=== PATIENT | female | born 1995 | race Hispanic/Latino ===

== ENCOUNTER 2017-11-02 13:05 | Emergency (ER) | payer SELFPAY ==
[2017-11-02] MEDS ORDERED: DIPHENHYDRAMINE 50 MG/ML VIAL ONE (13:55)
[2017-11-02] MEDS ORDERED: METHYLPREDNISOLONE 125 MG INJ ONE (13:56)
[2017-11-02] MEDS ORDERED: NA CHLORIDE 0.9% 1,000 ML ONE (13:56)
[2017-11-02] MEDS ORDERED: FAMOTIDINE 20 MG/2 ML VIAL IV ONE (13:56)
--- NOTE | 2017-11-02 14:41 | EDPHYS ---
Physician Documentation [facility] Name: Shobha Rodriguez Age: 22 yrs Sex: Female : 1995 Arrival Date: 11/02/2017 Time: 13:08 Bed 6 Private MD: Yo Merino ED Physician Barrington Ordaz HPI: 11/02 18:54 This 22 yrs old Female presents to ER via Ambulatory with complaints of Hives. kdr 18:54 The patient presents with itching, rash, of the back, chest, abdomen, right arm and kdr left arm, that is diffuse. Onset: The symptoms/episode began/occurred suddenly, just prior to arrival, today. Associated signs and symptoms: Pertinent positives: hives, rash, Pertinent negatives: Altered mental status chest pain, dysphagia, fever, headache, Light headed nausea, swelling, Syncope vomiting. Possible causes: The patient has no known obvious cause for the symptoms. At home the patient or guardian has treated the symptoms with nothing. Severity of symptoms: At their worst the symptoms were moderate in the emergency department the symptoms are worse markedly. The patient has not experienced similar symptoms in the past. The patient has not recently seen a physician. 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 - Social history:: Smoking status: Patient/guardian denies using tobacco. - Ebola Screening: : No symptoms or risks identified at this time. ROS: 18:54 Constitutional: Negative for fever, chills, and weight loss, Eyes: Negative for injury, kdr pain, redness, and discharge, Neck: Negative for injury, pain, and swelling, Cardiovascular: Negative for chest pain, palpitations, and edema, Respiratory: Negative for shortness of breath, cough, wheezing, and pleuritic chest pain, Abdomen/GI: Negative for abdominal pain, nausea, vomiting, diarrhea, and constipation, Back: Negative for injury and pain, : Negative for injury, bleeding, discharge, and swelling, MS/Extremity: Negative for injury and deformity, Neuro: Negative for headache, weakness, numbness, tingling, and seizure activity. Psych: Negative for depression, anxiety, suicide ideation, homicidal ideation, and hallucinations, Allergy/Immunology: Negative for hives, rash, and allergies, Endocrine: Negative for neck swelling, polydipsia, polyuria, polyphagia, and marked weight changes, Hematologic/Lymphatic: Negative for swollen nodes, abnormal bleeding, and unusual bruising. 18:54 Skin: Positive for rash, diffusely. Exam: 18:54 Constitutional: This is a well developed, well nourished patient who is awake, alert, kdr and in no acute distress. Head/Face: Normocephalic, atraumatic. Eyes: Pupils equal round and reactive to light, extra-ocular motions intact. Lids and lashes normal. Conjunctiva and sclera are non-icteric and not injected. Cornea within normal limits. Periorbital areas with no swelling, redness, or edema. ENT: Nares patent. No nasal discharge, no septal abnormalities noted. Tympanic membranes are normal and external auditory canals are clear. Oropharynx with no redness, swelling, or masses, exudates, or evidence of obstruction, uvula midline. Mucous membranes moist. Neck: Trachea midline, no thyromegaly or masses palpated, and no cervical lymphadenopathy. Supple, full range of motion without nuchal rigidity, or vertebral point tenderness. No Meningismus. Chest/axilla: Normal chest wall appearance and motion. Nontender with no deformity. No lesions are appreciated. Cardiovascular: Regular rate and rhythm with a normal S1 and S2. No gallops, murmurs, or rubs. Normal PMI, no JVD. No pulse deficits. Respiratory: Lungs have equal breath sounds bilaterally, clear to auscultation and percussion. No rales, rhonchi or wheezes noted. No increased work of breathing, no retractions or nasal flaring. Abdomen/GI: Soft, non-tender, with normal bowel sounds. No distension or tympany. No guarding or rebound. No evidence of tenderness throughout. Back: No spinal tenderness. No costovertebral tenderness. Full range of motion. MS/ Extremity: Pulses equal, no cyanosis. Neurovascular intact. Full, normal range of motion. Neuro: Awake and alert, GCS 15, oriented to person, place, time, and situation. Cranial nerves II-XII grossly intact. Motor strength 5/5 in all extremities. Sensory grossly intact. Cerebellar exam normal. Normal gait. Psych: Awake, alert, with orientation to person, place and time. Behavior, mood, and affect are within normal limits. Vital Signs: 13:14 BP 117 / 90; Pulse 108; Resp 15; Temp 99.1(TE); Pulse Ox 99% on R/A; Weight 63.5 kg lk1 (R); Height 4 ft. 11 in. (149.86 cm) (R); Pain 9/10; 15:01 BP 125 / 89; Pulse 89; Resp 16; Pulse Ox 99% ; Pain 1/10; jl7 13:14 Body Mass Index 28.28 (63.50 kg, 149.86 cm) lk1 MDM: 13:25 Patient medically screened. kdr 18:54 Data reviewed: vital signs, nurses notes. Counseling: I had a detailed discussion with kdr the patient and/or guardian regarding: the historical points, exam findings, and any diagnostic results supporting the discharge/admit diagnosis, the need for outpatient follow up. Administered Medications: 13:57 Drug: NS 0.9% 1000 ml Route: IV; Rate: 1 bolus; Site: right antecubital; jl7 14:44 Follow up: Response: No adverse reaction; IV Status: Completed infusion jl7 13:58 Drug: SOLU-Medrol 125 mg Route: IVP; Site: right antecubital; jl7 14:30 Follow up: Response: No adverse reaction; Marked relief of symptoms jl7 14:00 Drug: Benadryl 25 mg Route: IVP; Site: right antecubital; jl7 14:30 Follow up: Response: No adverse reaction; Marked relief of symptoms jl7 14:03 Drug: Pepcid 20 mg Route: IVP; Site: right antecubital; jl7 14:30 Follow up: Response: No adverse reaction; Marked relief of symptoms jl7 Disposition: 11/02/17 14:40 Discharged to Home. Impression: Acute Allergic Reaction: Agent unkown. - Condition is Stable. - Discharge Instructions: Hives, [id number], Allergies, [id number]. - Prescriptions for Benadryl 25 mg Oral Capsule - take 1 capsule by ORAL route every 6 hours As needed; 30 tablet. Pepcid 20 mg Oral Tablet - take 1 tablet by ORAL route every 12 hours for 5 days; 10 tablet. Medrol (Mike) 4 mg Oral Tablets, Dose Pack - take 1 tablet by ORAL route as directed - follow package instructions; 1 packet. - Medication Reconciliation Form, Thank You Letter form. - Follow up: Yo Merino MD; When: 2 - 3 days; Reason: If symptoms return, Further diagnostic work-up, Recheck today's complaints, Continuance of care, Re-evaluation by your physician. - Problem is new. - Symptoms have improved. Signatures: Barrington Ordaz MD MD kdr Kluge, Leah RN RN lk1 Marlon Rosado RN RN jl7 Corrections: (The following items were deleted from the chart) 15:04 14:40 11/02/2017 14:40 Discharged to Home. Impression: Acute Allergic Reaction: Agent jl7 unkown. Condition is Stable. Forms are Medication Reconciliation Form, Thank You Letter, Antibiotic Education, Prescription Opioid Use. Follow up: Yo Merino; When: 2 - 3 days; Reason: If symptoms return, Further diagnostic work-up, Recheck today's complaints, Continuance of care, Re-evaluation by your physician. Problem is new. Symptoms have improved. kdr
--- NOTE | 2017-11-02 14:41 | ER ---
Nurse's Notes [facility] Name: Shobha Rodriguez Age: 22 yrs Sex: Female : 1995 Arrival Date: 11/02/2017 Time: 13:08 Bed 6 Private MD: Yo Merino Diagnosis: Acute Allergic Reaction: Agent unkown Presentation: 11/02 13:11 Presenting complaint: Patient states: "I got some speckles on my hands around 0730 this lk1 morning. I have psoriasis and I am used to itching but its looking worse today. My back is whelped up and it huber really bad.". Transition of care: patient was not received from another setting of care. Onset: The symptoms/episode began/occurred gradually. Anaphylaxis evaluation, no signs or symptoms of anaphylaxis were noted. Onset of symptoms was November 02, 2017 at 07:30. Risk Assessment: Do you want to hurt yourself or someone else? Patient reports no desire to harm self or others. Initial Sepsis Screen: Does the patient meet any 2 criteria? No. Patient's initial sepsis screen is negative. Does the patient have a suspected source of infection? No. Patient's initial sepsis screen is negative. Care prior to arrival: None. 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 - Social history:: Smoking status: Patient/guardian denies using tobacco. - Ebola Screening: : No symptoms or risks identified at this time. Screenin:45 Abuse screen: Denies threats or abuse. Denies injuries from another. Nutritional jl7 screening: No deficits noted. Tuberculosis screening: No symptoms or risk factors identified. Fall Risk IV access (20 points). Total Tellez Fall Scale indicates No Risk (0-24 pts). Assessment: 13:45 General: Appears in no apparent distress. uncomfortable, Behavior is calm, cooperative, jl7 appropriate for age. Pain: Complains of pain in all over Pain does not radiate. Pain currently is 9 out of 10 on a pain scale. Quality of pain is described as burning, Pain began 4 hours ago. Neuro: Level of Consciousness is awake, alert, obeys commands, Oriented to person, place, time, situation. Cardiovascular: Patient's skin is warm and dry. Respiratory: Airway is patent Respiratory effort is even, unlabored, Respiratory pattern is regular, symmetrical, Breath sounds are clear bilaterally. Derm: Skin is pink, warm \\T\\ dry. Rash noted that is itchy, red, raised, urticaria, on face, arms, torso. 14:30 Reassessment: Patient and/or family updated on plan of care and expected duration. Pain jl7 level reassessed. Patient is alert, oriented x 3, equal unlabored respirations, skin warm/dry/pink. Patient denies pain at this time. Patient states symptoms have improved. Vital Signs: 13:14 BP 117 / 90; Pulse 108; Resp 15; Temp 99.1(TE); Pulse Ox 99% on R/A; Weight 63.5 kg lk1 (R); Height 4 ft. 11 in. (149.86 cm) (R); Pain 9/10; 15:01 BP 125 / 89; Pulse 89; Resp 16; Pulse Ox 99% ; Pain 1/10; jl7 13:14 Body Mass Index 28.28 (63.50 kg, 149.86 cm) lk1 ED Course: 13:08 Patient arrived in ED. mr 13:08 Yo Merino MD is Private Physician. mr 13:12 Triage completed. lk1 13:16 Arm band placed on right wrist. lk1 13:17 Marlon Rosado RN is Primary Nurse. jl7 13:25 Barrington Ordaz MD is Attending Physician. kdr 13:45 Patient has correct armband on for positive identification. Bed in low position. Call jl7 light in reach. Side rails up X 1. Pulse ox on. NIBP on. Warm blanket given. 13:45 Inserted saline lock: 20 gauge in right antecubital area, using aseptic technique. jl7 14:39 Yo Merino MD is Referral Physician. kdr 15:01 No provider procedures requiring assistance completed. IV discontinued, intact, jl7 bleeding controlled, No redness/swelling at site. Pressure dressing applied. Administered Medications: 13:57 Drug: NS 0.9% 1000 ml Route: IV; Rate: 1 bolus; Site: right antecubital; jl7 14:44 Follow up: Response: No adverse reaction; IV Status: Completed infusion jl7 13:58 Drug: SOLU-Medrol 125 mg Route: IVP; Site: right antecubital; jl7 14:30 Follow up: Response: No adverse reaction; Marked relief of symptoms jl7 14:00 Drug: Benadryl 25 mg Route: IVP; Site: right antecubital; jl7 14:30 Follow up: Response: No adverse reaction; Marked relief of symptoms jl7 14:03 Drug: Pepcid 20 mg Route: IVP; Site: right antecubital; jl7 14:30 Follow up: Response: No adverse reaction; Marked relief of symptoms [facility] Outcome: 14:40 Discharge ordered by . ozzie 15:01 Discharged to home ambulatory. jl7 15:01 Condition: stable 15:01 Discharge instructions given to patient, Instructed on discharge instructions, follow up and referral plans. medication usage, Demonstrated understanding of instructions, follow-up care, medications, Prescriptions given X 3. 15:04 Patient left the ED. jl7 Signatures: Barrington Ordaz MD MD kdr Rivera, Maria mr Kluge, Leah RN RN lk1 Marlon Rosado RN RN jl7
[2017-11-02 15:10] VITALS: TEMP 99.1; O2SAT 99
[2017-11-02 15:11] VITALS: BP 125/89
== END 2017-11-02 15:04 | disposition home or self-care (01) ==
LOC: ER 13:05
DX: T78.40XA Allergy, unspecified, initial encounter (principal); X58.XXXA Exposure to other specified factors, initial encounter; L50.9 Urticaria, unspecified; Z88.0 Allergy status to penicillin; G43.909 Migraine, unspecified, not intractable, without status migrainosus; L40.9 Psoriasis, unspecified
CPT/HCPCS: 96361; 96374; 96375; 99284; J2930; J7030

== ENCOUNTER 2018-06-02 16:08 | Emergency (ER) | payer OTHER, SELFPAY ==
--- NOTE | 2018-06-02 17:23 | EDPHYS ---
Physician Documentation [facility] Name: Shobha Rodriguez Age: 23 yrs Sex: Female : 1995 Arrival Date: 06/02/2018 Time: 16:09 Bed 17 Private MD: ED Physician Wade Damon HPI: 06/02 17:02 This 23 yrs old Female presents to ER via Ambulatory with complaints of Back jmm Pain. 17:02 The patient presents with pain that is acute. Onset: The symptoms/episode jmm began/occurred gradually, 5 day(s) ago. The pain does not radiate. Associated signs and symptoms: Pertinent positives: vomiting. This is a 23 year old female currently 7 week that presents to the ED with upper back pain beginning this past Monday. Patient states the same day she vomited and was nausea. She currently denies nausea, vomiting, abdominal pain. Patient states upper back pain continues. . 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 - Social history:: Smoking status: Patient/guardian denies using tobacco. - Ebola Screening: : Patient negative for fever greater than or equal to 101.5 degrees Fahrenheit, and additional compatible Ebola Virus Disease symptoms Patient denies exposure to infectious person Patient denies travel to an Ebola-affected area in the 21 days before illness onset No symptoms or risks identified at this time. ROS: 17:02 Constitutional: Negative for fever, chills, and weight loss, Cardiovascular: Negative jmm for chest pain, palpitations, and edema, Respiratory: Negative for shortness of breath, cough, wheezing, and pleuritic chest pain. 17:02 Abdomen/GI: Positive for nausea, vomiting. 17:02 Back: Positive for pain at rest, pain with movement. 17:02 All other systems are negative. Exam: 17:02 Constitutional: This is a well developed, well nourished patient who is awake, alert, jmm and in no acute distress. Head/Face: atraumatic. Eyes: EOMI, no conjunctival erythema appreciated Neck: Trachea midline, Supple Chest/axilla: Normal chest wall appearance and motion. Cardiovascular: Regular rate and rhythm. No edema appreciated Respiratory: Normal respirations, no respiratory distress appreciated 17:02 Abdomen/GI: Inspection: abdomen appears normal, Bowel sounds: normal, Palpation: abdomen is soft and non-tender, in all quadrants. 17:02 Back: pain, that is mild, of the left scapular area and right scapular area, pain is elicited on palpation of the trapezius muscle. 17:02 Back: CVA tenderness, is absent, is noted bilaterally. 17:02 Musculoskeletal/extremity: ROM: intact in all extremities. 17:02 Neuro: Orientation: is normal, Mentation: is normal, Memory: is normal, Gait: is steady. 17:02 Psych: Behavior/mood is pleasant, cooperative. Vital Signs: 16:20 BP 108 / 70; Pulse 77; Resp 17; Temp 98.4; Pulse Ox 98% on R/A; Weight 68.95 kg; Height sg 4 ft. 11 in. (149.86 cm); Pain 7/10; 17:18 BP 101 / 71; Pulse 74; Resp 18; Temp 98.4(O); Pulse Ox 98% on R/A; Weight 68.95 kg; em Height 4 ft. 11 in. (149.86 cm); Pain 7/10; 17:18 Body Mass Index 30.70 (68.95 kg, 149.86 cm) em MDM: 16:52 Patient medically screened. [facility] 17:11 Differential diagnosis: muscle strain, cholecystitis, pyelonephritis. Data reviewed: [facility] vital signs, nurses notes. Counseling: I had a detailed discussion with the patient and/or guardian regarding: the historical points, exam findings, and any diagnostic results supporting the discharge/admit diagnosis, lab results, the need for outpatient follow up. 17:21 ED course: Patient is alert and non toxic in appearance in the ED. Symptoms appear most jmm likely musculoskeletal. PE findings are not consistent with pyelonephritis or cholecystitis. NO vaginal bleeding or pelvic pain. Patient is given return precautions. Patient understood and agrees with the plan of care. . 06/02 17: Order name: Urine Microscopic Only; Complete Time: 17:43 em 06/02 17:09 Order name: Urine Culture em 06/02 17:01 Order name: Urine Dipstick-Ancillary (obtain specimen); Complete Time: 17:08 em 06/02 17:11 Order name: Urine Dipstick--Ancillary (enter results) eb 06/02 17:11 Order name: Urine --Ancillary (enter results) eb Administered Medications: No medications were administered Disposition: 06/03 07:03 Co-signature as Attending Physician, Wade Damon MD. rn Disposition: 06/02/18 17:23 Discharged to Home. Impression: Urinary tract infection, site not specified, Trapezius Strain. - Condition is Stable. - Discharge Instructions: Muscle Strain, and Urinary Tract Infection. - Prescriptions for Cyclobenzaprine 5 mg Oral Tablet - take 1 tablet by ORAL route 3 times per day As needed; 15 tablet. Cephalexin 500 mg Oral Capsule - take 1 capsule by ORAL route every 12 hours for 10 days; 20 capsule. - Medication Reconciliation Form, Thank You Letter, Antibiotic Education, Prescription Opioid Use form. - Follow up: Private Physician; When: 2 - 3 days; Reason: Recheck today's complaints, Continuance of care, Re-evaluation by your physician. Signatures: Dispatcher [employer] Car Hamm, RN RN sg Antony Grande PA PA Olivier Peres, EVENT MGR EVENT MGR em Wade Damon MD MD business development intern: (The following items were deleted from the chart) 06/02 17:49 17:23 06/02/2018 17:23 Discharged to Home. Impression: Urinary tract infection, site em not specified; Trapezius Strain. Condition is Stable. Forms are Medication Reconciliation Form, Thank You Letter, Antibiotic Education, Prescription Opioid Use. Follow up: Private Physician; When: 2 - 3 days; Reason: Recheck today's complaints, Continuance of care, Re-evaluation by your physician. [facility]
--- NOTE | 2018-06-02 17:23 | ER ---
Nurse's Notes [facility] Name: Shobha Rodriguez Age: 23 yrs Sex: Female : 1995 Arrival Date: 06/02/2018 Time: 16:09 Bed 17 Private MD: Diagnosis: Urinary tract infection, site not specified;Trapezius Strain Presentation: 06/02 16:23 Presenting complaint: Patient states: Flank pain, lower back pain, Nausea for two days, sg urinary urgency and frequency. Transition of care: patient was not received from another setting of care. Onset of symptoms was June 02, 2018. Risk Assessment: Do you want to hurt yourself or someone else? Patient reports no desire to harm self or others. Initial Sepsis Screen: Does the patient meet any 2 criteria? No. Patient's initial sepsis screen is negative. Does the patient have a suspected source of infection? Yes: Dysuria/Frequency/Urgency/UTI. Care prior to arrival: None. 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 - Social history:: Smoking status: Patient/guardian denies using tobacco. - Ebola Screening: : Patient negative for fever greater than or equal to 101.5 degrees Fahrenheit, and additional compatible Ebola Virus Disease symptoms Patient denies exposure to infectious person Patient denies travel to an Ebola-affected area in the 21 days before illness onset No symptoms or risks identified at this time. Screenin:47 Abuse screen: Denies threats or abuse. Nutritional screening: No deficits noted. em Tuberculosis screening: No symptoms or risk factors identified. 16:47 Fall Risk None identified. em Assessment: 16:47 General: Appears in no apparent distress. comfortable, Behavior is calm, cooperative. em Pain: Complains of pain in right scapular area and left scapular area Pain currently is 7 out of 10 on a pain scale. Pain began 2-3 days ago. Neuro: Level of Consciousness is awake, alert, obeys commands, Oriented to person, place, time, situation. Cardiovascular: Capillary refill < 3 seconds Patient's skin is warm and dry. Respiratory: Airway is patent Respiratory effort is even, unlabored, Respiratory pattern is regular, symmetrical. GI: Abdomen is flat, Patient currently denies nausea, vomiting. : Urine is cloudy, Denies burning with urination, discharge, urinary frequency, vaginal bleeding. : Denies. Derm: Skin is intact, is healthy with good turgor, Skin is pink, warm \T\ dry. Musculoskeletal: Capillary refill < 3 seconds, Range of motion: intact in all extremities. 17:00 Reassessment: I agree with previous assessment. 17:47 Reassessment: Patient appears in no apparent distress at this time. Patient and/or em family updated on plan of care and expected duration. Pain level reassessed. Patient is alert, oriented x 3, equal unlabored respirations, skin warm/dry/pink. Vital Signs: 16:20 BP 108 / 70; Pulse 77; Resp 17; Temp 98.4; Pulse Ox 98% on R/A; Weight 68.95 kg; Height sg 4 ft. 11 in. (149.86 cm); Pain 7/10; 17:18 BP 101 / 71; Pulse 74; Resp 18; Temp 98.4(O); Pulse Ox 98% on R/A; Weight 68.95 kg; em Height 4 ft. 11 in. (149.86 cm); Pain 7/10; 17:18 Body Mass Index 30.70 (68.95 kg, 149.86 cm) em ED Course: 16:09 Patient arrived in ED. as 16:23 Arm band placed on. sg 16:25 Triage completed. 16:29 Antony Grande PA is PHCP. [facility] 16:29 Wade Damon MD is Attending Physician. [facility] 16:34 Olivier Bianchi LVN is Primary Nurse. em 16:47 Patient has correct armband on for positive identification. Bed in low position. Call em light in reach. Pulse ox on. NIBP on. 17:11 Urine collected: clean catch specimen, cloudy. em 17:47 No provider procedures requiring assistance completed. Patient did not have IV access em during this emergency room visit. Administered Medications: No medications were administered Outcome: 17:23 Discharge ordered by . [facility] 17:47 Discharged to home ambulatory. em 17:47 Condition: good 17:47 Discharge instructions given to patient, Instructed on discharge instructions, follow up and referral plans. medication usage, Demonstrated understanding of instructions, follow-up care, medications, Prescriptions given X 2. 17:49 Patient left the ED. em Signatures: Car Hermosillo, RN RN Antony Duke PA PA jmm Munoz, Edgar, CLAY STAIN MIXER CLAY STAIN MIXER em Stephanie Hill Heather, RN RN hb
[2018-06-02 17:41] LABS: Urine Amorphous Sediment 1+ /HPF (NONE SEEN); Urine Bacteria 20-50 /HPF (<20); Urine Culture Reflex Order NOT NEEDED; Urine Mucus 1+ /HPF (NONE SEEN); Urine RBC <5 /HPF (NONE SEEN)
[2018-06-02 17:54] VITALS: TEMP 98.4; O2SAT 98
[2018-06-02 17:57] VITALS: BP 101/71
[2018-06-02 18:07] LABS: Urine Blood NEGATIVE (NEG); Urine Glucose NEGATIVE (NEG); Urine Protein NEGATIVE (NEG)
== END 2018-06-02 17:49 | disposition home or self-care (01) ==
LOC: ER 16:08
DX: O23.41 Unspecified infection of urinary tract in pregnancy, first trimester (principal); S29.012A Strain of muscle and tendon of back wall of thorax, initial encounter; Z3A.01 Less than 8 weeks gestation of pregnancy; Z88.0 Allergy status to penicillin
CPT/HCPCS: 81003; 81015; 81025; 87086; 87088; 99283

== ENCOUNTER 2018-06-09 10:33 | Emergency (ER) | payer OTHER ==
[2018-06-09 11:31] LABS: Absolute Lymphocytes (CBC) 2.2 K/uL (0.7-4.9); Absolute Monocytes 0.6 K/uL (0.1-1.3); Absolute Neutrophil 4.6 K/uL (1.8-8.0); Basophils % 0.2 % (0-1.3); Eosinophils % 1.6 % (0-4.4); Hematocrit 40.9 % (36.0-45.0); Lymphocytes % 29.5 % (15.3-44.8); Monocytes % 8.1 % (3.3-12.3); RBC Red Blood Cell Count 4.54 M/uL (3.86-4.86)
[2018-06-09 11:40] LABS: BUN Blood Urea Nitrogen 6 mg/dL (7-18); Bicarbonate 24 mmol/L (21-32); Glucose Level 80 mg/dL (74-106); Potassium 3.6 mmol/L (3.5-5.1); Sodium Level 139 mmol/L (136-145); Troponin (Emerg Dept Use Only) < 0.02 ng/mL (0.0-0.045)
--- NOTE | 2018-06-09 12:42 | RAD REPORT ---
EXAM DESCRIPTION: RAD - Chest Single View - 06/09/2018 11:36 am CLINICAL HISTORY: Chest pain COMPARISON: None. TECHNIQUE: AP portable chest image was obtained 1100 hours . FINDINGS: Lungs are clear. Heart and vasculature are normal. No measurable pleural effusion and no p neumothorax. No acute bony abnormality seen. No acute aortic findings suspected. IMPRESSION: No acute cardiopulmonary process.
--- NOTE | 2018-06-09 14:19 | ER ---
Nurse's Notes [facility] Unit Name: Shobha Rodriguez Age: 23 yrs Sex: Female : 1995 Arrival Date: 06/09/2018 Time: 10:36 Bed 6 Private MD: Diagnosis: Chest pain, unspecified Presentation: 06/09 10:44 Presenting complaint: Patient states: I have had chest pain when I sneeze, take a deep la1 breath or cough for the last week or so. Pt reports sharp stabbing pain that radiates to back when she moves but no pain at rest. Pt is also about 8 wks . Transition of care: patient was not received from another setting of care. Onset of symptoms was June 09, 2018. Risk Assessment: Do you want to hurt yourself or someone else? Patient reports no desire to harm self or others. Initial Sepsis Screen: Does the patient meet any 2 criteria? No. Patient's initial sepsis screen is negative. Does the patient have a suspected source of infection? No. Patient's initial sepsis screen is negative. Care prior to arrival: None. 10:44 Method Of Arrival: Ambulatory la1 10:44 Acuity: THAIS 3 la1 DIRECTOR OF ROOMS: 10:46 LMP 04/12/2018 la1 Historical: - Allergies: 10:46 PENICILLINS; la1 - PMHx: 10:46 Migraines; psoriasis; la1 - Immunization history:: Adult Immunizations up to date. - Social history:: Smoking status: Patient/guardian denies using tobacco. - Ebola Screening: : No symptoms or risks identified at this time. Screenin:00 Abuse screen: Denies threats or abuse. Denies injuries from another. ca1 11:00 Nutritional screening: No deficits noted. On. Tuberculosis screening: No symptoms or ca1 risk factors identified. Fall Risk None identified. Assessment: 10:50 General: Appears in no apparent distress. comfortable, Behavior is calm, cooperative, ca1 appropriate for age. Pain: Complains of pain in chest Pain radiates to back Pain began 2 hours ago. Neuro: Level of Consciousness is awake, alert, obeys commands, Oriented to person, place, time, situation. Cardiovascular: Heart tones S1 S2 Capillary refill < 3 seconds Rhythm is sinus rhythm. Respiratory: Airway is patent Respiratory effort is even, unlabored, Respiratory pattern is regular, symmetrical, Breath sounds are clear bilaterally. GI: Abdomen is flat, non-distended, Bowel sounds present X 4 quads. Abd is soft and non tender X 4 quads. : No signs and/or symptoms were reported regarding the genitourinary system. EENT: No signs and/or symptoms were reported regarding the EENT system. Derm: Skin is intact, is healthy with good turgor, Skin is pink, warm \T\ dry. Musculoskeletal: Circulation, motion, and sensation intact. 11:48 Reassessment: Patient appears in no apparent distress at this time. Patient and/or ca1 family updated on plan of care and expected duration. Pain level reassessed. Patient is alert, oriented x 3, equal unlabored respirations, skin warm/dry/pink. 12:50 Reassessment: Shanice SantoyoBROKERAGE CLERK at bedside. ca1 13:46 Reassessment: Patient appears in no apparent distress at this time. Patient and/or ca1 family updated on plan of care and expected duration. Pain level reassessed. Patient is alert, oriented x 3, equal unlabored respirations, skin warm/dry/pink. 14:15 Reassessment: Patient appears in no apparent distress at this time. Provider at bedside.ca1 Vital Signs: 10:46 BP 105 / 75; Pulse 91; Resp 18; Temp 98.2; Pulse Ox 98% on R/A; Weight 70.31 kg; Height la1 4 ft. 11 in. (149.86 cm); 11:48 BP 99 / 72; Pulse 84; Resp 19; Pulse Ox 100% on R/A; ca1 12:45 BP 99 / 72; Pulse 82; Resp 19; Pulse Ox 100% on R/A; ca1 13:42 BP 102 / 71; Pulse 92; Resp 19; Pulse Ox 100% on R/A; ca1 14:20 BP 94 / 59; Pulse 85; Resp 18; Pulse Ox 100% on R/A; ca1 10:46 Body Mass Index 31.31 (70.31 kg, 149.86 cm) la1 ED Course: 10:36 Patient arrived in ED. mr 10:36 [facility]C [facility] kb 10:37 Carlos Gamble MD is Attending Physician. kb 10:46 Triage completed. la1 10:47 Arm band placed on right wrist. la1 10:48 Marlon Rosado, RN is Primary Nurse. jl7 10:50 Patient has correct armband on for positive identification. Placed in gown. Bed in low ca1 position. Call light in reach. Side rails up X2. lap welder on. Pulse ox on. NIBP on. 11:02 Guillermina Cook, RN is Primary Nurse. ca1 11:09 Initial lab(s) drawn, by mn, sent to lab. EKG done, by ED staff, reviewed by Shanice RIDER. Inserted saline lock: 22 gauge in right antecubital area, using aseptic technique. Blood collected. Patient maintains SpO2 saturation greater than 95% on room air. 11:44 XRAY Chest (1 view) In Process Unspecified. EDMS 12:17 Initial lab(s) drawn, D-dimer. jb1 13:47 Ultrasound completed. Patient tolerated well. sg3 13:48 US Extremity Venous W Compression Joshua In Process Unspecified. EDMS 14:11 Guillermina Cook, RN is Primary Nurse. ca1 14:29 No provider procedures requiring assistance completed. IV discontinued, intact, ca1 bleeding controlled, No redness/swelling at site. Pressure dressing applied. Administered Medications: No medications were administered Outcome: 14:19 Discharge ordered by MD. kb 14:29 Discharged to home ambulatory, with family. ca1 14:29 Condition: stable 14:29 Discharge instructions given to patient, family, Instructed on discharge instructions, follow up and referral plans. 14:31 Patient left the ED. ca1 Signatures: Dispatcher [employer] EDMS MaddisonLuis Eduardo jbShanice Camacho FNP-C FNP-Tim Yesenia Wallace Maximo Costello RN RN laMarlon Marquez, RN RN [email or web address] Taylor Cordoba sg3 Guillermina Cook, RN RN ca1 Corrections: (The following items were deleted from the chart) 12:53 12:50 Reassessment: JOELLE Gould at bedside. ca1 ca1 14:30 14:15 No provider procedures requiring assistance completed. ca1 ca1 14:30 14:15 IV discontinued, intact, bleeding controlled, No redness/swelling at site. ca1 Pressure dressing applied, ca1
--- NOTE | 2018-06-09 14:19 | EDPHYS ---
Physician Documentation [facility] Name: Shobha Rodriguez Age: 23 yrs Sex: Female : 1995 Arrival Date: 06/09/2018 Time: 10:36 Bed 6 Private MD: ED Physician Carlos Gamble HPI: 06/09 13:59 This 23 yrs old Female presents to ER via Ambulatory with complaints of Chest kb Pain, . 13:59 The patient or guardian reports chest pain that is located primarily in the anterior kb chest wall, left. The pain radiates to left back. Associated signs and symptoms: The patient has no apparent associated signs or symptoms. The chest pain is described as aching. Duration: The patient or guardian reports multiple episodes, that are intermittent. Modifying factors: The symptoms are alleviated by nothing. the symptoms are aggravated by breathing, cough. Severity of pain: At its worst the pain was moderate in the emergency department the pain is unchanged. The patient has not experienced similar symptoms in the past. The patient has not recently seen a physician. Pt reports left sided chest pain that radiates through to back that started a few weeks ago. States pain is worse with inspiration, cough and sneezing. Denies fever or shortness of breath. 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 - Social history:: Smoking status: Patient/guardian denies using tobacco. - Ebola Screening: : No symptoms or risks identified at this time. ROS: 13:55 Constitutional: Negative for fever, chills, and weight loss, Respiratory: Negative for kb shortness of breath, cough, wheezing, and pleuritic chest pain, Abdomen/GI: Negative for abdominal pain, nausea, vomiting, diarrhea, and constipation, MS/Extremity: Negative for injury and deformity, Skin: Negative for injury, rash, and discoloration, Neuro: Negative for headache, weakness, numbness, tingling, and seizure. 13:55 Cardiovascular: Positive for chest pain, with cough, of the anterior aspect of left upper chest. Exam: 13:59 Constitutional: This is a well developed, well nourished patient who is awake, alert, kb and in no acute distress. Head/Face: Normocephalic, atraumatic. Chest/axilla: Normal chest wall appearance and motion. Nontender with no deformity. No lesions are appreciated. Cardiovascular: Regular rate and rhythm with a normal S1 and S2. No gallops, murmurs, or rubs. Normal PMI, no JVD. No pulse deficits. Respiratory: Lungs have equal breath sounds bilaterally, clear to auscultation and percussion. No rales, rhonchi or wheezes noted. No increased work of breathing, no retractions or nasal flaring. Abdomen/GI: Soft, non-tender, with normal bowel sounds. No distension or tympany. No guarding or rebound. No evidence of tenderness throughout. Back: No spinal tenderness. No costovertebral tenderness. Full range of motion. Skin: Warm, dry with normal turgor. Normal color with no rashes, no lesions, and no evidence of cellulitis. MS/ Extremity: Pulses equal, no cyanosis. Neurovascular intact. Full, normal range of motion. Neuro: Awake and alert, GCS 15, oriented to person, place, time, and situation. Cranial nerves II-XII grossly intact. Motor strength 5/5 in all extremities. Sensory grossly intact. Cerebellar exam normal. Normal gait. Vital Signs: 10:46 BP 105 / 75; Pulse 91; Resp 18; Temp 98.2; Pulse Ox 98% on R/A; Weight 70.31 kg; Height la1 4 ft. 11 in. (149.86 cm); 11:48 BP 99 / 72; Pulse 84; Resp 19; Pulse Ox 100% on R/A; ca1 12:45 BP 99 / 72; Pulse 82; Resp 19; Pulse Ox 100% on R/A; ca1 13:42 BP 102 / 71; Pulse 92; Resp 19; Pulse Ox 100% on R/A; ca1 14:20 BP 94 / 59; Pulse 85; Resp 18; Pulse Ox 100% on R/A; ca1 10:46 Body Mass Index 31.31 (70.31 kg, 149.86 cm) la1 MDM: 10:49 Patient medically screened. kb 13:54 Data reviewed: vital signs, nurses notes. Data interpreted: Pulse oximetry: on room air kb is 100 %. Interpretation: normal. 14:18 The patient's pulmonary embolism risk score was calculated as follows: Total Score: 0-2 kb points. This patient was found to be at low risk for a pulmonary embolism by using the Well's assessment criteria. Counseling: I had a detailed discussion with the patient and/or guardian regarding: the historical points, exam findings, and any diagnostic results supporting the discharge/admit diagnosis, lab results, radiology results, the need for outpatient follow up, a family practitioner, an OB/Gyne specialist, to return to the emergency department if symptoms worsen or persist or if there are any questions or concerns that arise at home. 14:28 ED course: Discussed pt H\T\P and diagnostics with ERP. Pt has no shortness of breath, kb tachycardia, tachypnea, distress. Negative for DVT. Resting comfortably. PE unlikely. In agreement to discharge pt to follow up outpatient. Pt educated to return for dyspnea, worsening chest pain or any other concerns. 06/09 11:00 Order name: Basic Metabolic Panel; Complete Time: 12:04 kb 06/09 11:00 Order name: CBC with Diff; Complete Time: 12:04 kb 06/09 11:00 Order name: Troponin (emerg Dept Use Only); Complete Time: 12:04 kb 06/09 11:00 Order name: XRAY Chest (1 view); Complete Time: 12:44 kb 06/09 12:05 Order name: D-Dimer; Complete Time: 12:46 kb 06/09 12:51 Order name: US Extremity Venous W Compression Joshua; Complete Time: 14:28 kb 06/09 10:47 Order name: EKG; Complete Time: 10:48 kb 06/09 10:47 Order name: EKG - Nurse/Tech; Complete Time: 10:49 kb 06/09 11:00 Order name: Cardiac monitoring; Complete Time: 11:04 kb 06/09 11:00 Order name: IV Saline Lock; Complete Time: 11:04 kb 06/09 11:00 Order name: Labs collected and sent; Complete Time: 11:04 kb 06/09 11:00 Order name: O2 Per Protocol; Complete Time: 11:04 kb 06/09 11:00 Order name: O2 Sat Monitoring; Complete Time: 11:04 kb Administered Medications: No medications were administered Disposition: 18:51 Co-signature as Attending Physician, Carlos Gamble MD Available for consultation at ps1 all times . Disposition: 06/09/18 14:19 Discharged to Home. Impression: Chest pain, unspecified. - Condition is Stable. - Discharge Instructions: Nonspecific Chest Pain, [id number]. - Medication Reconciliation Form, Thank You Letter, Antibiotic Education, Prescription Opioid Use form. - Follow up: Emergency Department; When: As needed; Reason: Worsening of condition. Follow up: Private Physician; When: 2 - 3 days; Reason: Recheck today's complaints, Continuance of care, Re-evaluation by your physician. Signatures: Dispatcher [employer] EDMS Shanice Santoyo, CARTOGRAPHIC ENGINEER-C CARTOGRAPHIC ENGINEER-Maximo David RN RN la1 Carlos Gamble MD MD ps1 Guillermina Cook RN RN ca1 Corrections: (The following items were deleted from the chart) 14:31 14:19 06/09/2018 14:19 Discharged to Home. Impression: Chest pain, unspecified. ca1 Condition is Stable. Forms are Medication Reconciliation Form, Thank You Letter, Antibiotic Education, Prescription Opioid Use. Follow up: Emergency Department; When: As needed; Reason: Worsening of condition. Follow up: Private Physician; When: 2 - 3 days; Reason: Recheck today's complaints, Continuance of care, Re-evaluation by your physician. kb
--- NOTE | 2018-06-09 14:20 | RAD REPORT ---
EXAM DESCRIPTION: US - Extrem Venous W Compress Joshua - 06/09/2018 1:48 pm CLINICAL HISTORY: Leg pain and swelling COMPARISON: None. TECHNIQUE: Real-time sonographic evaluation of the bilateral lower extremity common femoral, superfi cial femoral, popliteal and posterior tibial veins was performed. FINDINGS: Normal compressibility, flow augmentation, phasic flow and spontaneous flow are identified in the left and right lower extremity common femoral, superficial femoral, popliteal and posterior t ibial veins. No intraluminal filling defects seen. IMPRESSION: No DVT in either lower extremity.
[2018-06-09 14:44] VITALS: TEMP 98.2
[2018-06-09 14:45] VITALS: O2SAT 100
[2018-06-09 14:49] VITALS: BP 94/59
--- NOTE | 2018-06-10 06:20 | EKG ---
Test Date: 2018-06-09 Test Time: 10:54:09 Cartridge Maker: DILAN MEASUREMENT RESULTS: Intervals: Rate: 70 MA: 154 QRSD: 84 QT: 380 QTc: 410 [place]: P: 29 MA: 154 QRS: 30 T: 20 INTERPRETIVE STATEMENTS: Normal sinus rhythm Low voltage QRS Borderline ECG No previous ECG available for comparison Electronically Signed On 06-10-18 06:16:49 MODEL BUILDER DISPLAY by Dante Tran
--- NOTE | 2018-06-10 19:12 | EKG ---
Test Date: 2018-06-09 Test Time: 10:56:35 Inspector Weights And Measures: DILAN MEASUREMENT RESULTS: Intervals: Rate: 73 NH: 156 QRSD: 84 QT: 390 QTc: 429 [place]: P: 37 NH: 156 QRS: -8 T: 11 INTERPRETIVE STATEMENTS: Normal sinus rhythm Normal ECG Compared to ECG 06/09/2018 10:54:09 No significant changes Electronically Signed On 06-10-18 19:12:01 MAINTENANCE ENGINEER by Dante Tran
== END 2018-06-09 14:31 | disposition home or self-care (01) ==
LOC: ER 10:33
DX: R07.9 Chest pain, unspecified (principal)
CPT/HCPCS: 36415; 71045; 80048; 84484; 85025; 85379; 93005; 93970; 99285

== ENCOUNTER 2018-07-16 09:27 | Emergency (ER) | payer OTHER ==
[2018-07-16] MEDS ORDERED: HYDROCODONE/APAP 5/325 MG TAB ONE (10:19)
[2018-07-16] MEDS ORDERED: LIDOCAINE 1% MPF 2 ML AMPULE ONE ×2 (10:19→10:38)
--- NOTE | 2018-07-16 10:54 | EDPHYS ---
Physician Documentation [facility] Name: Shobha Rodriguez Age: 23 yrs Sex: Female : 1995 Arrival Date: 07/16/2018 Time: 09:29 Bed 23 Private MD: None, None ED Physician Wade Damon HPI: 07/16 10:17 This 23 yrs old Female presents to ER via Ambulatory with complaints of 13wks rn vaginal abscess. 10:17 The patient presents with vaginal swelling/pain. Onset: The symptoms/episode rn began/occurred yesterday. Modifying factors: The symptoms are alleviated by nothing, the symptoms are aggravated by movement, pressure. Severity of symptoms: At their worst the symptoms were mild, in the emergency department the symptoms are unchanged. The patient has not experienced similar symptoms in the past. Reports 13 weeks , + vaginal swelling and pain for 1 day, hurts to walk and touch, no fever, no drainage, no vaginal bleeding, called her OB office, Dr. Layne, is not in office, and office told her to come here to get treated. . 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 - Social history:: Patient/guardian denies using alcohol, street drugs. - Ebola Screening: : No symptoms or risks identified at this time. - Family history:: not pertinent. - Hospitalizations: : No recent hospitalization is reported. ROS: 10:17 Constitutional: Negative for fever, chills, and weight loss, : + external vaginal rn pain and swelling Skin: + vaginal abscess Exam: 10:17 Constitutional: This is a well developed, well nourished patient who is awake, alert, rn and in no acute distress. Female : Right superior/lateral external labia/vulva with 1cm nodule that is tender, no head, does not communicate or abut clitoris or martinez. No overlying erythema. Vital Signs: 09:37 BP 104 / 71; Pulse 82; Resp 16; Temp 98.9; Pulse Ox 100% ; Weight 68.95 kg; Height 4 pt ft. 11 in. (149.86 cm); Pain 6/10; 09:37 Body Mass Index 30.70 (68.95 kg, 149.86 cm) pt Procedures: 10:49 I \T\ D: Incision and drainage was performed for an abscess of the right right proximal rn outer labia Prepped with Betadine, Anesthetized with 3 ml's 1% Lidocaine. Incised with #11 blade. Drained small amount purulent fluid. serosanguinous fluid. Packed with iodoform gauze, Dressing: sterile 4x4 gauze, the patient tolerated the procedure well, Needle aspiration got 0.5cc purulence, #11 blade used to puncture sac, no further purulence obtained, wound packed. . MDM: 09:54 Patient medically screened. rn 10:49 Differential diagnosis: abscess. Data reviewed: vital signs, nurses notes, and as a rn result, I will discharge patient. Counseling: I had a detailed discussion with the patient and/or guardian regarding: the historical points, exam findings, and any diagnostic results supporting the discharge/admit diagnosis, the need for outpatient follow up, to return to the emergency department if symptoms worsen or persist or if there are any questions or concerns that arise at home. Response to treatment: the patient's symptoms have mildly improved after treatment, and as a result, I will discharge patient. Special discussion: I discussed with the patient/guardian in detail that at this point there is no indication for admission to the hospital. It is understood, however, that if the symptoms persist or worsen the patient needs to return immediately for re-evaluation. ED course: Pt has f/u appt with her OB in 2 days, instructed to keep area clean, keep packed, and will prescribe keflex. Most likely ingrown hair given patient shaves as well as abnormal location of abscess.. 07/16 10:08 Order name: Wound Culture rn Administered Medications: :11 Drug: [place] 5 mg-325 mg 1 tabs Route: PO; em 11:00 Follow up: Response: No adverse reaction; Pain is decreased aa5 10:30 Drug: Lidocaine (1 %) 1 vials {Note: administered by Dr. Dmaon during I\T\D .} Volume: 5 aa5 ml; Route: Infiltration; 11:00 Follow up: Response: No adverse reaction aa5 Disposition: 07/16/18 10:53 Discharged to Home. Impression: Labial abscess. - Condition is Stable. - Discharge Instructions: Skin Abscess, Incision and Drainage, Care After. - Prescriptions for Keflex 500 mg Oral Capsule - take 1 capsule by ORAL route every 12 hours for 10 days; 20 capsule. - Medication Reconciliation Form, Thank You Letter, Antibiotic Education, Prescription Opioid Use form. - Follow up: Usama Layne MD; When: 48 Hours; Reason: Recheck today's complaints, Re-evaluation by your physician. - Problem is new. - Symptoms have improved. Signatures: Dispatcher [employer] Antonella Medina RN RN pt Olivier Bianchi, HEAD LINEMAN HEAD LINEMAN em Wade Damon MD MD rn Calderon, Audri, RN RN aa5 Corrections: (The following items were deleted from the chart) 11:09 10:53 07/16/2018 10:53 Discharged to Home. Impression: Labial abscess. Condition is aa5 Stable. Forms are Medication Reconciliation Form, Thank You Letter, Antibiotic Education, Prescription Opioid Use. Follow up: Usama Layne; When: 48 Hours; Reason: Recheck today's complaints, Re-evaluation by your physician. Problem is new. Symptoms have improved. rn
--- NOTE | 2018-07-16 10:54 | ER ---
Nurse's Notes [facility] Name: Shobha Rodriguez Age: 23 yrs Sex: Female : 1995 Arrival Date: 07/16/2018 Time: 09:29 Bed 23 Private MD: None, None Diagnosis: Labial abscess Presentation: 07/16 09:34 Presenting complaint: Patient states: Abscess to right labia. States pain started pt Uche and noticed swelling yesterday. Dennies fever. States 13 weeks and Xi is her OB but he is currently OOT. Transition of care: patient was not received from another setting of care. Onset of symptoms was July 13, 2018. Risk Assessment: Do you want to hurt yourself or someone else?. Initial Sepsis Screen: Does the patient meet any 2 criteria? No. Patient's initial sepsis screen is negative. Does the patient have a suspected source of infection? Yes: Skin breakdown/wound. Care prior to arrival: None. 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 - Social history:: Patient/guardian denies using alcohol, street drugs. - Ebola Screening: : No symptoms or risks identified at this time. - Family history:: not pertinent. - Hospitalizations: : No recent hospitalization is reported. Screenin:02 Abuse screen: Denies threats or abuse. Nutritional screening: No deficits noted. em Tuberculosis screening: No symptoms or risk factors identified. Fall Risk None identified. Assessment: 10:00 General: Appears comfortable, Behavior is calm, cooperative. Pain: Complains of pain in aa5 right labia Pain currently is 6 out of 10 on a pain scale. Quality of pain is described as tender, Pain began 2-3 days ago. Is continuous. Neuro: Level of Consciousness is awake, alert, obeys commands, Oriented to person, place, time, situation. Cardiovascular: No deficits noted. Respiratory: Airway is patent Respiratory effort is even, unlabored, Respiratory pattern is regular, symmetrical. GI: No signs and/or symptoms were reported involving the gastrointestinal system. : No signs and/or symptoms were reported regarding the genitourinary system. EENT: No signs and/or symptoms were reported regarding the EENT system. Derm: Skin is pink, warm \\T\\ dry. Abscess located on right labia is nickel sized, has no drainage, is hot to touch, is red, is raised. Musculoskeletal: Range of motion: intact in all extremities. 11:00 Reassessment: Patient is alert, oriented x 3, equal unlabored respirations, skin aa5 warm/dry/pink. Vital Signs: 09:37 BP 104 / 71; Pulse 82; Resp 16; Temp 98.9; Pulse Ox 100% ; Weight 68.95 kg; Height 4 pt ft. 11 in. (149.86 cm); Pain 6/10; 09:37 Body Mass Index 30.70 (68.95 kg, 149.86 cm) pt ED Course: 09:29 Patient arrived in ED. mr 09:30 None, None is Private Physician. mr 09:37 Triage completed. pt 09:54 Olivier Bianchi LVN is Primary Nurse. em 09:54 Wade Damon MD is Attending Physician. rn 10:02 Patient has correct armband on for positive identification. Placed in gown. Bed in low em position. Call light in reach. Side rails up X2. 10:02 Arm band placed on. em 10:30 Assist provider with I \\T\\ D: of an abscess on right labia Set up I\\T\\D tray. Performed by aa 5 Wade Damon MD Culture sent to lab. Wound packed. iodoform gauze, Dressing with 4X4s, tape Patient tolerated well. 10:30 Patient did not have IV access during this emergency room visit. aa5 10:53 Usama Layne MD is Referral Physician. rn Administered Medications: 10:11 Drug: [place] 5 mg-325 mg 1 tabs Route: PO; em 11:00 Follow up: Response: No adverse reaction; Pain is decreased aa5 10:30 Drug: Lidocaine (1 %) 1 vials {Note: administered by Dr. Damon during I\\T\\D .} Volume: 5 aa5 ml; Route: Infiltration; 11:00 Follow up: Response: No adverse reaction aa5 Outcome: 10:53 Discharge ordered by . rn 11:00 Discharged to home ambulatory. aa5 11:00 Condition: good 11:00 Discharge instructions given to patient, Instructed on discharge instructions, follow up and referral plans. medication usage, wound care, Demonstrated understanding of instructions, follow-up care, medications, wound care, Prescriptions given X 1. 11:09 Patient left the ED. aa5 Addendum: 07/20/2018 11:00 Addendum: Culture Results: Positive wound culture. Contacted pt over the phone. Pt a a5 states "I followed-up with Dr. Layne already and he said it was a staph infection and to continue taking the Keflex and it is getting better". Results faxed to Dr. Layne per pt's request. Signatures: Antonella Castellon RN RN Yesenia Bahena mr Bianchi, Olivier, ENVIRONMENTAL SAMPLING TECHNICIAN ENVIRONMENTAL SAMPLING TECHNICIAN Wade Calderon MD MD rn Calderon, Audri, RN RN aa5 Corrections: (The following items were deleted from the chart) 07/16 11:13 11:00 Discharge instructions given to patient, Instructed on discharge instructions, aa5 follow up and referral plans. medication usage, Demonstrated understanding of instructions, follow-up care, medications, Prescriptions given X 1, aa5
[2018-07-16 11:13] VITALS: BP 104/71; TEMP 98.9; O2SAT 100
== END 2018-07-16 11:09 | disposition home or self-care (01) ==
LOC: ER 09:27
PROC: 0U9MXZZ Drainage of Vulva, External Approach (ICD-10-PCS; principal; 2018-07-16)
DX: O26.891 Other specified pregnancy related conditions, first trimester (principal); N76.4 Abscess of vulva; Z3A.13 13 weeks gestation of pregnancy; Z88.0 Allergy status to penicillin
CPT/HCPCS: 87070; 87077; 87186; 87205; 99284; J2001

== ENCOUNTER 2019-01-10 04:29 | Inpatient (IN) | payer OTHER ==
[2019-01-10] MEDS ORDERED: METHYLERGONOVINE 0.2MG/ML AMP IM PRN (04:33)
[2019-01-10] MEDS ORDERED: BUTORPHANOL 1 MG/ML INJ IV PRN (04:33)
[2019-01-10] MEDS ORDERED: PROMETHAZINE 25 MG/ML VIAL IV PRN (04:33)
[2019-01-10] MEDS ORDERED: MEPERIDINE HCL 25 MG/0.5 ML IV PRN (04:33)
[2019-01-10] MEDS ORDERED: CARBOPROST TROME 250 MCG/ML IM PRN (04:33)
[2019-01-10] MEDS ORDERED: MIDAZOLAM HCL 2 MG/2 ML INJ IV PRN (04:33)
[2019-01-10] MEDS ORDERED: Ringers Lactate 1,000 ML IV PRN (04:33)
--- OUTSIDE RECORDS SUMMARY | 2019-01-10 04:33 | XMS REPORT ---
:1995 [facility] Address [address] [place] [address] Care Team Providers Name Role Phone Unavailable Unavailable Unavailable Problems This patient has no known problems. Allergies, Adverse Reactions, Alerts This patient has no known allergies or adverse reactions. Medications This patient has no known medications.
[2019-01-10] MEDS ORDERED: OXYTOCIN/LR 20 UNIT/1,000 ML BAG IV SCH ×2 (05:00→14:00)
[2019-01-10] MEDS ORDERED: Ringers Lactate 1,000 ML IV SCH (05:00)
[2019-01-10 05:05] VITALS: BMI 36.7
[2019-01-10 05:09] LABS: Urine Appearance TURBID; Urine Bilirubin NEGATIVE (NEG); Urine Blood 1+ (NEG); Urine Color YELLOW; Urine Glucose NEGATIVE (NEG); Urine Protein TRACE (NEG); Urine pH 6.5 (5.0-7.0)
[2019-01-10 05:11] LABS: Absolute Lymphocytes (CBC) 2.3 K/uL (0.7-4.9); Basophils % 0.2 % (0-1.3); Hematocrit 28.5 % (36.0-45.0); Lymphocytes % 25.8 % (15.3-44.8); MPV 9.2 fL (7.6-11.3); RBC Red Blood Cell Count 3.77 M/uL (3.86-4.86)
[2019-01-10 05:13] LABS: Urine Microscopic Reflex ORDER UMIC
[2019-01-10 06:00] LABS: Urine Bacteria >50 /HPF (<20); Urine Culture Reflex Order NOT NEEDED; Urine RBC <5 /HPF (NONE SEEN)
[2019-01-10] MEDS ORDERED: ROPIVACAINE HCL 100 ML IV PRN (11:13)
[2019-01-10] MEDS ORDERED: ROPIVACAINE HCL 0.2% 20ML AMP SQ ONE (11:14)
[2019-01-10] MEDS ORDERED: LIDOCAINE 1% MPF 30 ML VIAL ONE (11:35)
[2019-01-10] MEDS ORDERED: LIDOCAINE 2% MPF 5 ML VIAL ONE (11:50)
--- NOTE | 2019-01-10 12:35 | PREOPHP ---
Date of Admission: 01/10/2019 A 23-year-old 2, para 1, 39 weeks gestation, Rh positive. Immune to Rubella. Negative beta strep screen. Allergic to penicillin. First delivery was noted to have forceps delivery because of the epidural and her inability to push. With the third degree laceration, she says she wishes to elizabeth id epidural this time, of course backed up to the patient. She is 3 cm, 50%, somewhat posterior, -1 station. Vertex, rupture of membranes, clear fluid. FHTs normal, reactive. Vital signs are all goo d. Labor talk given. Anticipate delivery sometime later today. DAVIS/STEPHEN Voice ID: [id number]
[2019-01-10] MEDS ORDERED: Oxycodone HCl/Acetaminophen 1 TAB TAB PO PRN ×2 (13:11)
[2019-01-10] MEDS ORDERED: DIPHENHYDRAMINE 25 MG TAB/CAP PO PRN (13:11)
[2019-01-10] MEDS ORDERED: IBUPROFEN 200 MG TAB PO PRN (13:11)
[2019-01-10] MEDS ORDERED: ACETAMINOPHEN 500 MG TAB PO PRN (13:11)
[2019-01-10] MEDS ORDERED: DOCUSATE NA/SENNA CONC 1 TAB PO PRN (13:11)
[2019-01-10] MEDS ORDERED: BISACODYL 10 MG RECTAL SUPP RECT PRN (13:11)
[2019-01-10] MEDS: METHYLERGONOVINE 0.2 MG TAB PO PRN ×3 (14:09→21:57)
[2019-01-10] MEDS ORDERED: Ringers Lactate 2,000 ML IV ONE (18:09)
[2019-01-10 21:45] LABS: RPR (Rapid Plasma Reagin) NON-REACT (NON-REACT)
--- NOTE | 2019-01-11 09:06 | OP ---
Surgeon: Usama Layne MD This 23-year-old 2, para 1, 39 weeks, 3.5 cm on admission. Pros and cons of induction jones wallly discussed. Rupture of membranes at 3.5 cm clear fluid. Patient requested and received epidural anesthesia at approximately 5 cm, went rapidly to complete. Second stage of 15 to 30 minutes, spont aneous vaginal delivery of an estimated 7-pound male infant. Nuchal cord loosely x1. Apgars 9 and 9 . Spontaneous Schultze delivery of the placenta, which was inspected and noted to be heavily calcifi ed, but otherwise normal. Mild uterine hypotonus, 0.2 mg of Methergine IM, as well as IV drip, Pitoc in and massage. Estimated blood loss 400 to 425 cc. Patient had a large amount of urine and therefo re straight catheter was performed to make sure this did not interfere with the uterine contractility and tolerated all procedures well. Rh positive, immune to Rubella. Negative beta strep screen. Final Diagnoses: Term intrauterine at 39 weeks. Vaginal delivery. Epidural anesthesia. Mild uterine hypotonus. BRYANC/MODL Voice ID: [id number] Report ID: [id number]
--- NOTE | 2019-01-11 09:15 | DS ---
This 23-year-old 2, para 1, 39 weeks, delivered a 7 pound plus male . Apgars 9 and 9. Epidural anesthesia. Small first-degree laceration, sutured with 2-0 chromic, mild uterine hypotonu s after delivery of the placenta, which was inspected and noted be intact and normal. Heavily calcif ied, 400 to 425 cc blood loss. Methergine 0.2 mg IM and then followed by p.o. Methergine. Postpartu m, afebrile, ambulating and voiding. Lochia is normal. She is Rh positive, immune to Rubella. Nega tive beta strep screen. She has had her Tdap shot, offered flu shot at my office. We will dismiss h er later today, the baby is being circumcised right now. She requests no analgesics on dismissal. Final Diagnoses: Term intrauterine 39 weeks. Vaginal delivery. Mild uterine hypotonus, e pidural anesthesia. DAVIS/STEPHEN Voice ID: [id number] Report ID: [id number]
[2019-01-11 14:17] VITALS: BP 108/59; TEMP 98.7
[2019-01-14 03:29] LABS: HBsAG Nonreactive (Nonreactive)
== END 2019-01-11 16:50 | disposition home or self-care (01) | DRG 807 ==
LOC: 2ND-WC 04:29
PROVIDERS: ADMIT Specialist; ATTEND Specialist
PROC: 10907ZC Drainage of Amniotic Fluid, Therapeutic from Products of Conception, Via Natural or Artificial Opening (ICD-10-PCS; principal; 2019-01-10)
PROC: 10E0XZZ Delivery of Products of Conception, External Approach (ICD-10-PCS; 2019-01-10)
PROC: 0HQ9XZZ Repair Perineum Skin, External Approach (ICD-10-PCS; 2019-01-10)
DX: O70.0 First degree perineal laceration during delivery (principal); Z37.0 Single live birth; O62.2 Other uterine inertia; O69.81X0 Labor and delivery complicated by cord around neck, without compression, not applicable or unspecified; Z3A.39 39 weeks gestation of pregnancy; Z88.0 Allergy status to penicillin
CPT/HCPCS: 36415; 81003; 81015; 85025; 86592; 86850; 86900; 86901; 87340; J0595; J2175; J2210; J2550; J2590; J2795

== ENCOUNTER 2019-02-07 08:29 | Emergency (ER) | payer OTHER ==
--- NOTE | 2019-02-07 08:39 | EDPHYS ---
Physician Documentation [facility] Name: Shobha Rodriguez Age: 23 yrs Sex: Female : 1995 Arrival Date: 02/07/2019 Time: 08:32 Bed 13 Private MD: None, None ED Physician Carlos Mckee HPI: 02/07 08:44 This 23 yrs old Female presents to ER via Unassigned with complaints of Ear kb Pain. 08:44 The patient presents with pain, swelling, tenderness. The complaints affect the pinna kb of left ear. Onset: The symptoms/episode began/occurred 3 day(s) ago. Modifying factors: The symptoms are alleviated by nothing, the symptoms are aggravated by touching. Associated signs and symptoms: The patient has no apparent associated signs or symptoms. Severity of symptoms: At their worst the symptoms were mild in the emergency department the symptoms are unchanged. The patient has not experienced similar symptoms in the past. The patient has not recently seen a physician. Historical: - Allergies: 08:44 PENICILLINS; ss - Home Meds: 08:44 None [Active]; ss - PMHx: 08:44 psoriasis; Migraines; ss - PSHx: 08:44 None; ss - Immunization history:: Adult Immunizations up to date. - Social history:: Smoking status: Patient/guardian denies using tobacco. - Ebola Screening: : Patient denies exposure to infectious person Patient denies travel to an Ebola-affected area in the 21 days before illness onset. ROS: 08:44 Constitutional: Negative for fever, chills, and weight loss, Cardiovascular: Negative kb for chest pain, palpitations, and edema, Respiratory: Negative for shortness of breath, cough, wheezing, and pleuritic chest pain, Abdomen/GI: Negative for abdominal pain, nausea, vomiting, diarrhea, and constipation, MS/Extremity: Negative for injury and deformity, Skin: Negative for injury, rash, and discoloration, Neuro: Negative for headache, weakness, numbness, tingling, and seizure. 08:44 ENT: Positive for ear pain. Exam: 08:44 Constitutional: This is a well developed, well nourished patient who is awake, alert, kb and in no acute distress. Head/Face: Normocephalic, atraumatic. Neck: Trachea midline, no thyromegaly or masses palpated, and no cervical lymphadenopathy. Supple, full range of motion without nuchal rigidity, or vertebral point tenderness. No Meningismus. Chest/axilla: Normal chest wall appearance and motion. Nontender with no deformity. No lesions are appreciated. Cardiovascular: Regular rate and rhythm with a normal S1 and S2. No gallops, murmurs, or rubs. Normal PMI, no JVD. No pulse deficits. Respiratory: Lungs have equal breath sounds bilaterally, clear to auscultation and percussion. No rales, rhonchi or wheezes noted. No increased work of breathing, no retractions or nasal flaring. Abdomen/GI: Soft, non-tender, with normal bowel sounds. No distension or tympany. No guarding or rebound. No evidence of tenderness throughout. MS/ Extremity: Pulses equal, no cyanosis. Neurovascular intact. Full, normal range of motion. Neuro: Awake and alert, GCS 15, oriented to person, place, time, and situation. Cranial nerves II-XII grossly intact. Motor strength 5/5 in all extremities. Sensory grossly intact. Cerebellar exam normal. Normal gait. 08:44 ENT: External ear(s): cellulitis, that is minimal, of the pinna of left ear, Ear canal(s): are normal, TM's: are normal. Vital Signs: 08:38 BP 99 / 68; Pulse 71; Resp 16; Temp 98.0(O); Pulse Ox 98% on R/A; Weight 68.04 kg; dh3 Height 4 ft. 11 in. (149.86 cm); Pain 7/10; 08:38 Body Mass Index 30.30 (68.04 kg, 149.86 cm) 3 MDM: 08:33 Patient medically screened. [facility] 08:38 Data reviewed: vital signs, nurses notes. Data interpreted: Pulse oximetry: on room air kb is 100 %. Interpretation: normal. Counseling: I had a detailed discussion with the patient and/or guardian regarding: the historical points, exam findings, and any diagnostic results supporting the discharge/admit diagnosis, the need for outpatient follow up, an ENT specialist, to return to the emergency department if symptoms worsen or persist or if there are any questions or concerns that arise at home. Administered Medications: 08:42 Not Given (Physician Discretion; pt ): Bactrim (160 mg-800 mg (DS) 1 kb tablet PO once 08:46 Drug: KeFLEX 500 mg Route: PO; jl7 08:51 Follow up: Response: Medication administered at discharge. Disposition: 10:27 Co-signature as Attending Physician, Carlos Mckee MD I agree with the assessment and [facility] plan of care. Disposition: 02/07/19 08:39 Discharged to Home. Impression: Local infection of the skin and subcutaneous tissue, unspecified. - Condition is Stable. - Discharge Instructions: Skin Abscess, [id number]. - Prescriptions for Keflex 500 mg Oral Capsule - take 1 capsule by ORAL route every 8 hours for 10 days; 30 capsule. - Medication Reconciliation Form, Thank You Letter, Antibiotic Education, Prescription Opioid Use form. - Follow up: Emergency Department; When: As needed; Reason: Worsening of condition. Follow up: Private Physician; When: 2 - 3 days; Reason: Recheck today's complaints, Continuance of care, Re-evaluation by your physician. Signatures: Shanice Santoyo, MEDICAL LEGAL INVESTIGATOR-C MEDICAL LEGAL INVESTIGATOR-Carlos Broderick MD MD cha Smirch, Shelby RN RN Marlon Rosado RN RN jl7 Corrections: (The following items were deleted from the chart) 08:51 08:39 02/07/2019 08:39 Discharged to Home. Impression: Local infection of the skin and ss subcutaneous tissue, unspecified. Condition is Stable. Forms are Medication Reconciliation Form, Thank You Letter, Antibiotic Education, Prescription Opioid Use. Follow up: Emergency Department; When: As needed; Reason: Worsening of condition. Follow up: Private Physician; When: 2 - 3 days; Reason: Recheck today's complaints, Continuance of care, Re-evaluation by your physician. kb
--- NOTE | 2019-02-07 08:39 | ER ---
[facility] Name: Shobha Rodriguez Age: 23 yrs Sex: Female : 1995 Arrival Date: 02/07/2019 Time: 08:32 Bed 13 Private MD: None, None Diagnosis: Local infection of the skin and subcutaneous tissue, unspecified Presentation: 02/07 08:42 Presenting complaint: Patient states: "I have a bubble on my ear and I can't like sleep ss on it." Pt reports pain and mild swelling to L ear cartilage began 3 days ago. Denies fever. Transition of care: patient was not received from another setting of care. Onset of symptoms was February 05, 2019. Risk Assessment: Do you want to hurt yourself or someone else? Patient reports no desire to harm self or others. Initial Sepsis Screen: Does the patient meet any 2 criteria? No. Patient's initial sepsis screen is negative. Does the patient have a suspected source of infection? No. Patient's initial sepsis screen is negative. Care prior to arrival: None. 08:42 Method Of Arrival: Ambulatory ss 08:42 Acuity: THAIS 5 ss Historical: - Allergies: 08:44 PENICILLINS; ss - Home Meds: 08:44 None [Active]; ss - PMHx: 08:44 psoriasis; Migraines; ss - PSHx: 08:44 None; ss - Immunization history:: Adult Immunizations up to date. - Social history:: Smoking status: Patient/guardian denies using tobacco. - Ebola Screening: : Patient denies exposure to infectious person Patient denies travel to an Ebola-affected area in the 21 days before illness onset. Screenin:53 Abuse screen: Denies threats or abuse. Denies injuries from another. Nutritional ss screening: No deficits noted. Tuberculosis screening: Never had TB. Fall Risk None identified. Assessment: 08:42 General: Appears in no apparent distress. comfortable, Behavior is calm, cooperative, ss Denies fever, feeling ill, fatigue, chills. Pain: Complains of pain in pinna of left ear Pain currently is 7 out of 10 on a pain scale. Quality of pain is described as tender. Neuro: Level of Consciousness is awake, alert, obeys commands, Oriented to person, place, time, situation. Cardiovascular: Capillary refill < 3 seconds is brisk in bilateral fingers. Respiratory: Airway is patent Respiratory effort is even, unlabored, Respiratory pattern is regular, symmetrical. EENT: Ear canal clear on right ear and left ear Oral mucosa is moist. Throat is clear. Derm: Skin is pink, warm \\T\\ dry. normal. Vital Signs: 08:38 BP 99 / 68; Pulse 71; Resp 16; Temp 98.0(O); Pulse Ox 98% on R/A; Weight 68.04 kg; 3 Height 4 ft. 11 in. (149.86 cm); Pain 7/10; 08:38 Body Mass Index 30.30 (68.04 kg, 149.86 cm) 3 ED Course: 08:32 Patient arrived in ED. mr 08:33 None, None is Private Physician. mr 08:33 Carlos Mckee MD is Attending Physician. [facility] 08:33 Shanice Santoyo FNP-C [facility]. kb 08:42 Angy Vences RN is Primary Nurse. ss 08:44 Triage completed. ss 08:44 Arm band placed on right wrist. ss 08:51 No provider procedures requiring assistance completed. Patient did not have IV access ss during this emergency room visit. 08:53 Patient has correct armband on for positive identification. Bed in low position. Call ss light in reach. Administered Medications: 08:42 Not Given (Physician Discretion; pt ): Bactrim (160 mg-800 mg (DS) 1 kb tablet PO once 08:46 Drug: KeFLEX 500 mg Route: PO; jl7 08:51 Follow up: Response: Medication administered at discharge. ss Outcome: 08:39 Discharge ordered by . kb 08:51 Discharged to home ambulatory. ss 08:51 Condition: good 08:51 Discharge instructions given to patient, family, Instructed on discharge instructions, follow up and referral plans. medication usage, Demonstrated understanding of instructions, follow-up care, medications, Prescriptions given X 1. 08:51 Patient left the ED. ss Signatures: Shanice Santoyo FNP-C FNP-Carlos Broderick MD MD cha Rivera, Mary mr Angy Vences, RN RN aMrlon Rosado RN RN 7 Modesta Shukla formerly [facility] Corrections: (The following items were deleted from the chart) 08:39 08:38 BP 99 / 68; Pulse 71bpm; Resp 16bpm; Pulse Ox 98% RA; Temp 98.0F Oral; dh3 dh3
[2019-02-07] MEDS ORDERED: CEPHALEXIN 250 MG CAP ONE (08:44)
[2019-02-07 09:03] VITALS: BP 99/68; TEMP 98; O2SAT 98
== END 2019-02-07 08:51 | disposition home or self-care (01) ==
LOC: ER 08:29
DX: L08.9 Local infection of the skin and subcutaneous tissue, unspecified (principal); Z88.0 Allergy status to penicillin
CPT/HCPCS: 99283

== ENCOUNTER 2020-04-17 10:33 | Inpatient (IN) | payer OTHER ==
--- OUTSIDE RECORDS SUMMARY | 2020-04-17 10:35 | XMS REPORT | Continuity of Care Document ---
:1995 Author Organization [facility] t Address [address] [place] [address] Care Team Providers Name Role Phone Aura Chavarria MD Attending Clinician Problems This patient has no known problems. Allergies, Adverse Reactions, Alerts Allergy Allergy Status Severity Reaction(s) Onset Inactive Treating Comm ents Source Name Type Date Date Clinician penicill Adverse Active Info Not [facility] Medications Ordered Filled Start Stop Current Ordering Indication Dosage Frequency Signature Comments Components Source Medication Medication Date Date Medication? Clinician (SIG) Name Name BusPIRone BusPIRone Yes Na Kaplan [address] [facility] HCl HCl 2-13 [facility] Tizanidine Tizanidine 2020- No Na Kaplan [address] [facility] HCl HCl 2-13 03-14 as needed [facility] Clobetasol Clobetasol Yes Na Kaplan [address] [facility] Propionate Propionate applicatio [facility] to [facility] affected [facility] Clobetasol Clobetasol Yes Na Kaplan [address] [facility] Prop Prop applicatio [facility] [employer] [facility] [employer] [facility] Venlafaxine Venlafaxine Yes Na Kaplan [address] [facility] HCl ER HCl ER with food [facility] Procedures This patient has no known procedures. Encounters Start End Encounter Admission Attending Care Care Encounter Source Date/Time Date/Time Type Type Clinicians Facility Department ID 2020-04-01 2020-04-01 Outpatient [facility] [id number] [facility] 2020-03-17 2020-03-17 Outpatient [facility] [id number] [facility] 2020-02-13 2020-02-14 Office Adiel Chavarriay [facility] [id number] 15:15:37 16:46:30 Visit [facility] [id number] [facility] [id number] 2019-07-18 2019-07-18 [facility] [id number] [address] 11:00:00 11:00:00 [employer] [facility] 2019-06-20 2019-06-20 [facility] [id number] 13:20:00 13:20:00 t [employer] [facility] 2019-06-10 2019-06-10 [facility] [id number] 15:38:00 15:38:00 t [employer] [facility] Results This patient has no known results.
[2020-04-17] MEDS ORDERED: Ringers Lactate 1,000 ML IV PRN (12:39)
[2020-04-17] MEDS ORDERED: Ringers Lactate 1,000 ML IV SCH (13:00)
[2020-04-17] MEDS ORDERED: OXYTOCIN/LR 20 UNIT/1,000 ML BAG IV SCH ×2 (13:00→19:48)
--- NOTE | 2020-04-17 13:10 | P.OBGYNHP ---
Patient History Date of Service: 04/17/20 Reason for admission: Labor, vaginal bleeding History of Present Illness: Patient presents to triage for second time in <24 hours. She states that she got up this afternoon and felt increased pain with contractions that did not improve with rest and tylenol. She went to the bathroom and had a golfball sized blood clot in the toilet. She states since then, she has noted more just blood tinged discharge. +FM, but slightly less than yesterday. Allergies Penicillins Allergy (Verified 03/04/14 08:56) Hives/Rash Home medications list reviewed: Yes Home Medications: Pnv with Ca,No.71/Iron/FA [ Vitamin Tablet] 1 each PO DAILY 03/10/14 - Past Medical/Surgical History Diabetic: No Past Medical History: Patient denies medical history -: Vaginal delivery 03/2014 - Family History Father -: Hypertension - Social History Alcohol use: No CD- Drugs: No Caffeine use: No Review of Systems General: Unremarkable Eyes: Unremarkable ENT: Unremarkable Cardiovascular: Unremarkable Gastrointestinal: Unremarkable Integumentary: Unremarkable Physical Examination - General General: Alert, Oriented x3, Mild distress Respiratory: Clear to auscultation bilaterally, Normal air movement Cardiovascular: Regular rate/rhythm Gastrointestinal: Soft and benign - Female Pelvic External genitalia: Normal Vagina: Normal Cervix: Dilation (3-4cm/50/-2) Uterus: Gravid Laboratory Data (last 24 hrs) 04/17/20 12:43: WBC Cancelled, Hgb Cancelled, Hct Cancelled, Plt Count Cancelled Assessment and Plan - Problems (Diagnosis) (1) labor Current Visit: Yes Status: Acute Plan: 1. Early Labor - Patient has had cervical change from 2cm to 3-4 cm after ambulating. Plan for admission for labor - CBC, T&S, Updated RPR collected - Rapid Covid collected per hospital protocol - Bedside ultrasound confirmed Vtx/KAYLEE 10cm - labs noted GBS Negative - 2 prior SVDs - Hep B SAg Negative 10/2019 - 3T HIV NR 03/2020 Admit for labor. Patient and significant other in agreement with plan. Ok to ambulate for now, will recheck in 2-4 hours with AROM. Epidural if/when she desires - Advance Directives Does patient have a Living Will: No Does patient have a Durable POA for Healthcare: No
[2020-04-17 13:12] VITALS: BMI 38.3
[2020-04-17 13:24] LABS: Absolute Lymphocytes (CBC) 1.6 K/uL (0.7-4.9); Basophils % 0.3 % (0-1.3); Hematocrit 26.4 % (36.0-45.0); Lymphocytes % 18.9 % (15.3-44.8); MPV 8.7 fL (7.6-11.3); RBC Red Blood Cell Count 3.86 M/uL (3.86-4.86)
[2020-04-17 13:53] LABS: Platelet Estimate ADEQ; White Blood Cell Scan OK (OK)
[2020-04-17 13:54] LABS: Anisocytosis 1+; Blood Morphology Comment NOTED (NOT SEEN); Polychromasia SLIGHT
[2020-04-17 13:56] LABS: Hypochromasia 1+
[2020-04-17] MEDS ORDERED: INFLUENZA VACCINE (for 3y+) 0.5 ML DOSE IMVAC ONE (14:00)
[2020-04-17] MEDS ORDERED: FENTANYL/BUPIVACAINE/NS/PF 200 MCG/100 ML BAG EP PRN (18:29)
[2020-04-17] MEDS ORDERED: FENTANYL CITR 100 MCG/2 ML IV ONE (18:29)
[2020-04-17] MEDS ORDERED: ROPIVACAINE HCL 0.2% 20ML AMP IV ONE (18:29)
[2020-04-17] MEDS ORDERED: BUPIVACAINE 0.25% PF 10 ML VIAL ONE (19:26)
[2020-04-17] MEDS ORDERED: CARBOPROST TROME 250 MCG/ML IM PRN (19:48)
[2020-04-17] MEDS ORDERED: METHYLERGONOVINE 0.2MG/ML AMP IM PRN (19:48)
[2020-04-17] MEDS ORDERED: miSOPROStoL 100 MCG TAB VAG PRN (19:55)
--- NOTE | 2020-04-17 21:57 | P.PN ---
Subjective Date of Service: 04/17/20 Chief Complaint: Admitted for early labor. Feeling increased contractions Review of Systems General: Unremarkable Eyes: Unremarkable ENT: Unremarkable Respiratory: Unremarkable Gastrointestinal: Unremarkable Genitourinary: Unremarkable Neurological: Unremarkable Physical Examination - Physical Exam General: Alert, Oriented x3 Respiratory: Clear to auscultation bilaterally, Normal air movement Cardiovascular: Regular rate/rhythm Other Physical/Emotional Findings: Cervix 4cm/50/-2. AROM minimal clear fluid. Cat 1 tracing - Studies Laboratory Data (last 24 hrs) 04/17/20 12:43: WBC Cancelled, Hgb Cancelled, Hct Cancelled, Plt Count Cancelled 04/17/20 12:25: WBC 8.5, Hgb 8.3 L, Hct 26.4 L, Plt Count 176 Assessment And Plan - Current Problems (Diagnosis) (1) labor Current Visit: Yes Status: Acute Plan: - Plan Early labor - Minimal change since last cervical exam - AROM clear fluid; minimal - Epidural when patient desires Continue current plan
--- NOTE | 2020-04-17 22:13 | P.OP ---
Date of Service: 04/17/20 (Vaginal Delivery) Findings and Operative Technique Date: 04/17/2020 Preop Dx: 1.) IUP at 38.4 weeks 2.) Early labor 3.) Vaginal bleeding 4.) Anemia Post Op: 1.) Same 2.) 10% placental abruption PROCEDURE: Spontaneous vaginal delivery SURGEON: Whit Márquez D.O ANESTHESIA: EPIDURAL QBL: 309cc INDICATIONS: Pt is a 24yo admitted with increased contractions and vaginal bleeding. She was in early labor, decision was made to keep and augment labor. She had AROM with clear fluid (minimal) then was started on pitocin. She received an epidrual for analgesia. Her course was uncomplicated per record review. GBS negative. 3T HIV and RPR were non reactive. Admission CBC noted anemia and plts of 176K. PROCEDURE: The patient was noted to be 10/100/+1 station. The perineum was prepped and draped in the usual fashion for a vaginal delivery. The patient pushed and the head delivered spontaneous over an intact perineum. No nuchal cord was noted. The remainder of the infant was easily delivered and placed on the maternal abdomen. After a 2 minute delayed cord clamping for benefit, the cord was clamped x2 and cut. The was noted to have spontaneous cry and spontaneous movement of all 4 extremities. The cord was noted to have 3 vessels. The placenta then delivered spontaneously and intact, with a 10% abruption noted after delivery. Pitocin was infusing after delivery of placenta. 600mcg of rectal cytotec was placed and gloves were changed. Bimanual massage was then performed. Bleeding was adequately controlled. Examination of the cervix and perineum revealed no lacerations. The patient tolerated the procedure well. She will recover in L&D with the . All sponge and needle counts were correct x2. : Female Weight: 6#15oz Apgars: 9/9
[2020-04-17] MEDS ORDERED: DOCUSATE NA/SENNA CONC 1 TAB PO PRN (22:15)
[2020-04-17] MEDS ORDERED: ONDANSETRON 4 MG/2 ML VIAL IV PRN (22:15)
[2020-04-17] MEDS ORDERED: IBUPROFEN 200 MG TAB PO PRN (22:15)
[2020-04-17] MEDS ORDERED: BISACODYL 10 MG RECTAL SUPP PR PRN (22:15)
[2020-04-18 03:05] LABS: RPR (Rapid Plasma Reagin) NON-REACT (NON-REACT)
[2020-04-18 05:52] LABS: Absolute Lymphocytes (CBC) 1.6 K/uL (0.7-4.9); Basophils % 0.4 % (0-1.3); Hematocrit 25.7 % (36.0-45.0); Lymphocytes % 12.5 % (15.3-44.8); MPV 8.7 fL (7.6-11.3); RBC Red Blood Cell Count 3.75 M/uL (3.86-4.86)
--- NOTE | 2020-04-18 06:36 | P.PN ---
Subjective Date of Service: 04/18/20 Chief Complaint: PPD 1 s/p Patient doing well. Ambulating, tolerating PO. She has had 2 BMs since delivery. No lightheadedness, shortness of breath, or palpitations. Breast feeding but planning on pumping today Review of Systems Unremarkable General: As per HPI Respiratory: Unremarkable Cardiovascular: Unremarkable Gastrointestinal: Unremarkable Genitourinary: Unremarkable Neurological: Unremarkable Physical Examination - Vital Signs Temperature: 98.8 F Blood Pressure: 109/58 Pulse: 90 Respirations: 12 - Physical Exam General: In no apparent distress, Oriented x3 Respiratory: Normal air movement Cardiovascular: Normal pulses, Regular rate/rhythm Gastrointestinal: Soft and benign, Non-distended Integumentary: No rashes Neurological: Normal speech, Normal affect Other Physical/Emotional Findings: Abdomen soft, Non tender. Uterus firm, below umbilicus. Normal lochia - Studies Laboratory Data (last 24 hrs) 04/18/20 05:24: WBC 13.1 H D, Hgb 8.2 L, Hct 25.7 L, Plt Count 161 04/17/20 12:43: WBC Cancelled, Hgb Cancelled, Hct Cancelled, Plt Count Cancelled 04/17/20 12:25: WBC 8.5, Hgb 8.3 L, Hct 26.4 L, Plt Count 176 Assessment And Plan - Plan 1.) PPD 1 s/p - Doing well post ; progressing as expected - Asymptomatic anemia. Vit C and Iron supplements to start today - Plan DC home in AM for 04/19 Routine post care today Plan to discharge in: 48 Hours
[2020-04-18] MEDS: FERROUS SULFATE 325 MG TAB PO SCH ×2 (08:40→21:00)
[2020-04-18] MEDS: ASCORBIC ACID 500 MG TABLET PO SCH ×2 (08:40→21:00)
[2020-04-18] MEDS: ACETAMINOPHEN 325 MG TABLET PO SCH ×3 (12:00→18:20)
[2020-04-19] MEDS: ACETAMINOPHEN 325 MG TABLET PO SCH (04:40)
[2020-04-19] MEDS ORDERED: Tdap (Diph,Pertuss(Acell),Tet Vac) 0.5 ML SYR IMVAC ONE (08:55)
--- NOTE | 2020-04-19 09:02 | P.DS ---
Admission Date: 04/17/20 Discharge Date: 04/19/20 Disposition: ROUTINE DISCHARGE Reason for Admission: PPD 1 s/p Procedures: after labor augmentation with AROM and pitocin - Problems (1) Vaginal delivery Onset Date: ~04/17/20 Current Visit: Yes Status: Acute Hospital Course: Patient was admitted for early labor at 4cm. She was augmented with AROM and pitocin and had an uncomplicated with QBL 309cc. Her post course was uncomplicated. She was discharged with Iron and Vit C for anemia and will call Dr. Layne's office on Monday to schedule a post follow up appointment. On the day of discharge, she was ambulating, tolerating PO, voiding and having BMs. No chest pain, shortness of breath, leg pain or abdominal pain. Her physical exam was unremarkable. Uterus was firm and below umbilicus. She had normal lochia Vital Signs/Physical Exam: Temp Pulse Resp BP Pulse Ox 97.6 F 77 14 119/66 04/19/20 04:00 04/19/20 04:00 04/19/20 04:00 04/19/20 04:00 General: Alert, Oriented x3, Cooperative Respiratory: Normal air movement Cardiovascular: Regular rate/rhythm Gastrointestinal: Soft and benign, Non-distended, No tenderness Neurological: Normal speech, Normal reflexes 2+, Normal affect Other Physical/Emotional Findings: Abdomen soft, Non tender. Uterus firm, below umbilicus. Normal lochia Laboratory Data at Discharge: WBC 13.1 K/uL (4.3-10.9) H D 04/18/20 05:24 Hgb 8.2 g/dL (12.0-15.0) L 04/18/20 05:24 Hct 25.7 % (36.0-45.0) L 04/18/20 05:24 Plt Count 161 K/uL (152-406) 04/18/20 05:24 Home Medications: Pnv with Ca,No.71/Iron/FA [ Vitamin Tablet] 1 each PO DAILY 03/10/14 Ascorbic Acid [Vitamin C*] 500 mg PO BID 30 Days #60 tablet 04/19/20 Ferrous Sulfate [Ferrous Sulfate*] 325 mg PO BID 30 Days #60 tab 04/19/20 New Medications: Ferrous Sulfate [Ferrous Sulfate*] 325 mg PO BID 30 Days #60 tab Ascorbic Acid [Vitamin C*] 500 mg PO BID 30 Days #60 tablet Diet: Regular Activity: Ad arthur Followup: Mckinley Layne MD [ACTIVE - CAN ADMIT] - Time spent managing pt's care (in minutes): 15
[2020-04-19 09:36] VITALS: BP 110/69; TEMP 97.5
[2020-04-23 03:19] LABS: HBsAG Nonreactive (Nonreactive)
== END 2020-04-19 09:40 | disposition home or self-care (01) | DRG 807 ==
LOC: L&D 10:33 → 2ND-WC 12:20
PROVIDERS: ADMIT Student in an Organized Health Care Education/Training Program; ATTEND Specialist
PROC: 10E0XZZ Delivery of Products of Conception, External Approach (ICD-10-PCS; principal; 2020-04-17)
PROC: 10907ZC Drainage of Amniotic Fluid, Therapeutic from Products of Conception, Via Natural or Artificial Opening (ICD-10-PCS; 2020-04-17)
PROC: 3E033VJ Introduction of Other Hormone into Peripheral Vein, Percutaneous Approach (ICD-10-PCS; 2020-04-17)
DX: O67.9 Intrapartum hemorrhage, unspecified (principal); Z37.0 Single live birth; O99.02 Anemia complicating childbirth; D64.9 Anemia, unspecified; Z3A.38 38 weeks gestation of pregnancy; Z20.828 Contact with and (suspected) exposure to other viral communicable diseases; Z23 Encounter for immunization
CPT/HCPCS: 36415; 81001; 85025; 86592; 86850; 86900; 86901; 87086; 87088; 87340; 90471; 90715; 99218; J2210; J2590; J3010; J7120; U0003

== ENCOUNTER 2020-07-19 11:49 | Emergency (ER) | payer OTHER ==
--- OUTSIDE RECORDS SUMMARY | 2020-07-19 11:51 | XMS REPORT | Continuity of Care Document ---
:1995 Author Organization [facility] t Address [address] [place] [address] Care Team Providers Name Role Phone Aura Chavarria MD Attending Clinician Problems This patient has no known problems. Allergies, Adverse Reactions, Alerts Allergy Allergy Status Severity Reaction(s) Onset Inactive Treating Comm ents Source Name Type Date Date Clinician penicill Adverse Active Info Not [facility] Medications Ordered Filled Start Stop Current Ordering Indication Dosage Frequency Signature Comments Components Source Medication Medication Date Date Medication? Clinician (SIG) Name Name BusPIRone BusPIRone Yes Na Kaplan [address] [facility] HCl HCl 2-13 [facility] Tizanidine Tizanidine 2020- No Na Kaplan [address] [facility] HCl HCl 2-13 03-14 as needed [facility] Clobetasol Clobetasol Yes Na Kaplan [address] [facility] Propionate Propionate applicatio [facility] Clobetasol Clobetasol Yes Na Kaplan [address] [facility] Prop Prop applicatio [facility] Venlafaxine Venlafaxine Yes Na Kaplan [address] [facility] HCl ER HCl ER with food [facility] Procedures This patient has no known procedures. Encounters Start End Encounter Admission Attending Care Care Encounter Source Date/Time Date/Time Type Type Clinicians Facility Department ID 2020-07-14 2020-07-14 Outpatient [facility] [id number] [facility] Out[facility] 2020-04-01 2020-04-01 Outpatient [facility] [id number] [facility] Outpat[facility] Clinics 2020-03-17 2020-03-17 Outpatient [facility] [id number] [facility]00 [facility] - [facility] Outpat[facility] Clinics 2020-02-13 2020-02-14 Office Danae Chavarria [id number] 15:15:37 16:46:30 Visit [facility] [id number] [facility] [id number] 2019-07-18 2019-07-18 [facility] [id number] [facility] 11:00:00 11:00:00 [facility] Clin[facility] 2019-06-20 2019-06-20 [facility] [id number] [facility] 13:20:00 13:20:00 [facility] Outpat[facility] Clinics 2019-06-10 2019-06-10 [facility] [id number] 15:38:00 15:38:00 [facility] Results This patient has no known results.
--- NOTE | 2020-07-19 13:22 | ER ---
Nurse's Notes [facility] Name: Shobha Rodriguez Age: 25 yrs Sex: Female : 1995 Arrival Date: 07/19/2020 Time: 11:52 Bed 14 Private MD: Diagnosis: Urticaria Presentation: 07/19 12:02 Chief complaint: Patient states: Rash, hives, itching int. for 9 days. No new foods or ll1 medications. No known allergens. Coronavirus screen: Client denies travel out of the [place] in the last 14 days. Client presents with at least one sign or symptom that may indicate coronavirus-19. Standard/surgical mask placed on the client. Ebola Screen: Patient denies travel to an Ebola-affected area in the 21 days before illness onset. Onset: The symptoms/episode began/occurred 9 day(s) ago. Anaphylaxis evaluation, no signs or symptoms of anaphylaxis were noted. Initial Sepsis Screen: Does the patient meet any 2 criteria? No. Patient's initial sepsis screen is negative. Does the patient have a suspected source of infection? Yes: Skin breakdown/wound. Risk Assessment: Do you want to hurt yourself or someone else? Patient reports no desire to harm self or others. Onset of symptoms was July 10, 2020. 12:02 Method Of Arrival: Ambulatory ll1 12:02 Acuity: THAIS 4 ll1 Historical: - Allergies: 12:04 PENICILLINS; ll1 - PMHx: 12:04 Migraines; psoriasis; ll1 - PSHx: 12:04 None; ll1 - Immunization history:: Flu vaccine is up to date. - Social history:: Smoking status: Patient denies any tobacco usage or history of. - Family history:: not pertinent. Screenin:49 Abuse screen: Denies threats or abuse. Denies injuries from another. Nutritional hb screening: No deficits noted. Tuberculosis screening: No symptoms or risk factors identified. Fall Risk None identified. Assessment: 12:47 General: Appears in no apparent distress. Behavior is calm, cooperative. Pain: Denies hb pain. Neuro: Level of Consciousness is awake, alert, obeys commands, Oriented to person, place, time, situation. Cardiovascular: Patient's skin is warm and dry. Respiratory: Respiratory effort is even, unlabored, Respiratory pattern is regular, symmetrical, Denies shortness of breath. GI: No signs and/or symptoms were reported involving the gastrointestinal system. : No signs and/or symptoms were reported regarding the genitourinary system. EENT: No signs and/or symptoms were reported regarding the EENT system. Derm: urticaria noted to bilateral forearms and cheeks. Musculoskeletal: No signs and/or symptoms reported regarding the musculoskeletal system. Vital Signs: 12:02 BP 113 / 77; Pulse 72; Resp 16; Temp 98.0; Pulse Ox 95% ; Weight 76.2 kg; Height 4 ft. ll1 11 in. (149.86 cm); Pain 9/10; 13:42 BP 105 / 78; Pulse 65; Resp 18; Temp 98; Pulse Ox 99% on R/A; dm5 12:02 Body Mass Index 33.93 (76.20 kg, 149.86 cm) ll1 ED Course: 11:52 Patient arrived in ED. ds1 12:04 Triage completed. ll1 12:05 Arm band placed on. ll1 12:49 Patient has correct armband on for positive identification. Bed in low position. Call light in reach. 12:53 Carlos Mckee MD is Attending Physician. anita 13:13 Rosemarie Mackey, RN is Primary Nurse. hb 13:17 Oc Nunez MD is Referral Physician. anita Administered Medications: 13:21 Drug: Pepcid 40 mg Route: PO; hb 13:21 Drug: predniSONE 60 mg Route: PO; hb 13:22 Drug: Benadryl 25 mg Route: PO; hb Outcome: 13:18 Discharge ordered by . anita 13:42 Patient left the ED. dm5 Signatures: Nora Smith, RN RN dmCarlos Fan MD MD cha Sanford, Demi ds1 Rosemarie Mackey, Jasen Jones RN, RN RN [facility]
--- NOTE | 2020-07-19 13:23 | EDPHYS ---
Physician Documentation [facility] Name: Shobha Rodriguez Age: 25 yrs Sex: Female : 1995 Arrival Date: 07/19/2020 Time: 11:52 Bed 14 Private MD: ED Physician Carlos Mckee HPI: 07/19 13:13 This 25 yrs old Female presents to ER via Ambulatory with complaints of Hives. anita 13:13 The patient's rash thought to be caused by Psoriasis Dermatitis. The rash is located on anita the body diffusely. The rash can be described as confluent, erythematous, patchy. Onset: The symptoms/episode began/occurred 2 day(s) ago. Associated signs and symptoms: Pertinent positives: burning sensation, itching, Pertinent negatives:. Severity of symptoms: At their worst the symptoms were mild in the emergency department the symptoms have improved mildly. Treatment given at home: Benadryl. The patient has experienced similar episodes in the past, a few times. Historical: - Allergies: 12:04 PENICILLINS; ll1 - PMHx: 12:04 Migraines; psoriasis; ll1 - PSHx: 12:04 None; ll1 - Immunization history:: Flu vaccine is up to date. - Social history:: Smoking status: Patient denies any tobacco usage or history of. - Family history:: not pertinent. ROS: 13:13 Constitutional: Negative for fever, chills, and weight loss, Eyes: Negative for injury, anita pain, redness, and discharge, ENT: Negative for injury, pain, and discharge, Neck: Negative for injury, pain, and swelling, Cardiovascular: Negative for chest pain, palpitations, and edema, Respiratory: Negative for shortness of breath, cough, wheezing, and pleuritic chest pain, Abdomen/GI: Negative for abdominal pain, nausea, vomiting, diarrhea, and constipation, Back: Negative for injury and pain, : Negative for injury, bleeding, discharge, and swelling, MS/Extremity: Negative for injury and deformity, Neuro: Negative for headache, weakness, numbness, tingling, and seizure, Psych: Negative for depression, anxiety, suicide ideation, homicidal ideation, and hallucinations, Allergy/Immunology: Negative for hives, rash, and allergies, Endocrine: Negative for neck swelling, polydipsia, polyuria, polyphagia, and marked weight changes, Hematologic/Lymphatic: Negative for swollen nodes, abnormal bleeding, and unusual bruising. 13:13 Skin: Positive for rash. Exam: 13:13 Constitutional: This is a well developed, well nourished patient who is awake, alert, anita and in no acute distress. Head/Face: Normocephalic, atraumatic. Eyes: Pupils equal round and reactive to light, extra-ocular motions intact. Lids and lashes normal. Conjunctiva and sclera are non-icteric and not injected. Cornea within normal limits. Periorbital areas with no swelling, redness, or edema. ENT: Nares patent. No nasal discharge, no septal abnormalities noted. Tympanic membranes are normal and external auditory canals are clear. Oropharynx with no redness, swelling, or masses, exudates, or evidence of obstruction, uvula midline. Mucous membranes moist. Neck: Trachea midline, no thyromegaly or masses palpated, and no cervical lymphadenopathy. Supple, full range of motion without nuchal rigidity, or vertebral point tenderness. No Meningismus. Chest/axilla: Normal chest wall appearance and motion. Nontender with no deformity. No lesions are appreciated. Cardiovascular: Regular rate and rhythm with a normal S1 and S2. No gallops, murmurs, or rubs. Normal PMI, no JVD. No pulse deficits. Respiratory: Lungs have equal breath sounds bilaterally, clear to auscultation and percussion. No rales, rhonchi or wheezes noted. No increased work of breathing, no retractions or nasal flaring. Abdomen/GI: Soft, non-tender, with normal bowel sounds. No distension or tympany. No guarding or rebound. No evidence of tenderness throughout. Back: No spinal tenderness. No costovertebral tenderness. Full range of motion. MS/ Extremity: Pulses equal, no cyanosis. Neurovascular intact. Full, normal range of motion. Neuro: Awake and alert, GCS 15, oriented to person, place, time, and situation. Cranial nerves II-XII grossly intact. Motor strength 5/5 in all extremities. Sensory grossly intact. Cerebellar exam normal. Normal gait. Psych: Awake, alert, with orientation to person, place and time. Behavior, mood, and affect are within normal limits. 13:13 Skin: Appearance: Color: normal in color, Temperature: normal temperature, Moisture: normal moisture, petechiae, ecchymosis, not noted. Vital Signs: 12:02 BP 113 / 77; Pulse 72; Resp 16; Temp 98.0; Pulse Ox 95% ; Weight 76.2 kg; Height 4 ft. ll1 11 in. (149.86 cm); Pain 9/10; 13:42 BP 105 / 78; Pulse 65; Resp 18; Temp 98; Pulse Ox 99% on R/A; dm5 12:02 Body Mass Index 33.93 (76.20 kg, 149.86 cm) ll1 MDM: 12:53 Patient medically screened. anita 13:16 Differential diagnosis: allergic reaction. Data reviewed: vital signs, nurses notes. anita Data interpreted: panel monitor: rate is 72 beats/min, rhythm is regular. Counseling: I had a detailed discussion with the patient and/or guardian regarding: the historical points, exam findings, and any diagnostic results supporting the discharge/admit diagnosis, lab results, the need for outpatient follow up, for definitive care, a family practitioner. Administered Medications: 13:21 Drug: Pepcid 40 mg Route: PO; hb 13:21 Drug: predniSONE 60 mg Route: PO; hb 13:22 Drug: Benadryl 25 mg Route: PO; hb Disposition: 07/19/20 13:18 Discharged to Home. Impression: Urticaria. - Condition is Stable. - Discharge Instructions: Hives, Hives, [id number]. - Prescriptions for Benadryl 25 mg Oral Capsule - take 1 capsule by ORAL route every 6 hours As needed; 30 tablet. Pepcid 20 mg Oral Tablet - take 1 tablet by ORAL route every 12 hours for 10 days; 20 tablet. Prednisone 20 mg Oral Tablet - take 2 tablet by ORAL route once daily for 5 days; 10 tablet. EpiPen 0.3 mg Injection auto- injector - inject 1 pen by INTRAMUSCULAR route once daily Inject into the outer portion of the thigh, through clothing if necessary. Indicated in the emergency treatment of allergic reactions; 1 Container. - Medication Reconciliation Form, Thank You Letter, Antibiotic Education, Prescription Opioid Use form. - Follow up: Private Physician; When: 2 - 3 days; Reason: Recheck today's complaints, Continuance of care, Re-evaluation by your physician. Follow up: Oc Nunez MD; When: 2 - 3 days; Reason: Recheck today's complaints, Continuance of care, Re-evaluation by your physician. - Problem is new. - Symptoms have improved. Signatures: Nora Smith, RN RN dm5 Carlos Mckee MD MD cha Baxter, Heather RN RN Jasen Jaime RN RN ll1 Corrections: (The following items were deleted from the chart) 13:42 13:18 07/19/2020 13:18 Discharged to Home. Impression: Urticaria. Condition is Stable. dm5 Forms are Medication Reconciliation Form, Thank You Letter, Antibiotic Education, Prescription Opioid Use. Follow up: Private Physician; When: 2 - 3 days; Reason: Recheck today's complaints, Continuance of care, Re-evaluation by your physician. Follow up: Oc Nunez; When: 2 - 3 days; Reason: Recheck today's complaints, Continuance of care, Re-evaluation by your physician. Problem is new. Symptoms have improved. anita
[2020-07-19] MEDS ORDERED: DIPHENHYDRAMINE 25 MG TAB/CAP ONE (13:34)
[2020-07-19] MEDS ORDERED: predniSONE 20 MG TAB ONE (13:34)
[2020-07-19] MEDS ORDERED: FAMOTIDINE 20 MG TAB ONE (13:35)
[2020-07-20 12:00] VITALS: BP 105/78; TEMP 98; O2SAT 99
== END 2020-07-19 13:42 | disposition home or self-care (01) ==
LOC: ER 11:49
DX: L50.9 Urticaria, unspecified (principal); Z88.0 Allergy status to penicillin
CPT/HCPCS: 99283; J7512

== ENCOUNTER 2021-11-26 21:56 | Emergency (ER) | payer OTHER ==
--- OUTSIDE RECORDS SUMMARY | 2021-11-26 22:04 | XMS REPORT | Continuity of Care Document ---
:1995 Author Organization [facility] t Address [address] [place] [place] [address] Care Team Providers Name Role Phone Rima Layne Primary Care Physician Page Kaplan Attending Clinician Unavailable Singer MATA Attending Clinician Doctor Unassigned, Name Attending Clinician Unavailable Carlo LOUIS Attending Clinician Gigi PHD, L Attending Clinician Page SMITH Attending Clinician Unavailable Aura Julian MD Attending Clinician AURA JULIAN Attending Clinician Unavailable Sav Lockett DO Attending Clinician Payers Payer Name Policy Type Policy Number Effective Date Expiration Date [facility] [id number] 2018 [facility] MEDICAID 00:00:00 Problems Condition Condition Condition Status Onset Resolution Last Treating Co mments Source Name Details Category Date Date Treatment Clinician Date Supervisio Supervisio Disease Active 2019-0 U nivers n of n of 2-08 ity of high[place] [facility] Multiparit Multiparit Disease Active 2019-0 U nivers y y 2-08 ity of 00:00: [place] [address] Medical Branch Nausea and Nausea and Disease Active 2019-0 U nivers vomiting vomiting 2-08 ity of during during 00:00: [place] 00 [facility] BV BV Disease Active Univers (bacterial (bacterial 1-14 it y of vaginosis) vaginosis) 00:00: [place] [facility] Obesity in Obesity in Disease Active U nivers 1-11 ity of 00:00: [place] [facility] Psoriasis Psoriasis Disease Active Uni vers 1-11 ity of 00:00: [place] [facility] Allergies, Adverse Reactions, Alerts Allergy Allergy Status Severity Reaction(s) Onset Inactive Treating Comm ents Source Name Type Date Date Clinician Penicill Propensi Active Hives Univer s in ty to 12-05 ity of adverse 00:00: [place] reaction 00 Medical s Branch PENICILL DRUG Active Hives Univers IN INGREDI 12-05 ity of 00:00: Medical Branch Penicill Propensi Active Hives Univer s in ty to 12-05 ity of adverse 00:00: [place] reaction 00 Medical s Branch penicill Adverse Active Info Not Commo n in Reaction Available [facility] Social History Social Habit Start Date Stop Date Quantity Comments Source Exposure to Not sure [facility] SARS-CoV-2 [place] [facility] (event) Branch History SDOH University o f Alcohol Frequency [facility] edical Branch History SDOH University o f Alcohol Std [place] [facility] Drinks Branch History SDOH University o f Alcohol Binge [facility] al Branch Alcohol intake 2021-01-29 2021-01-29 Current University of 00:00:00 00:00:00 non-drinker of [facility] alcohol Branch (finding) Alcohol Comment 2017-08-01 2017-08-01 social Universit y of 00:00:00 00:00:00 [facility] Tobacco use and 2017-08-01 2017-08-01 Never used Universit y of exposure 00:00:00 00:00:00 [facility] Sex Assigned At [birth year] Universit y of 00:00:00 00:00:00 [facility] Smoking Status Start Date Stop Date Source Never smoker [facility] [place] Medications Ordered Filled Start Stop Current Ordering Indication Dosage Frequency Signature Comments Components Source Medication Medication Date Date Medication? Clinician (SIG) Name Name ondansetron No 4mg 4 mg, Slow Univers (ZOFRAN 01-29 IV Push, ity of (PF)) 13:30: 12:36 ONCE, 1 [place] injection 4 00 :00 dose, On Medi ever mg Fri Branch 01/29/21 at 0830, Routine iopamidol 2020- No [id number] 120mL 120 mL, Univers (ISOVUE 01-29 Intravenou ity o f 370-500 mL) 13:10: 13:10 s, ONCE, 1 [place] injection 00 :00 dose, On Medica l 120 mL Fri Branch 01/29/21 at 0830, Routine NaCl 0.9% 2020- No 500mL at 999 Univ ers (NS) bolus 01-29 mL/hr, 500 it y of infusion 12:30: 13:31 mL, IV [place] 500 mL 00 :00 Infusion, Medical ONCE, 1 Branch dose, On 01/29/21 at 0730, STAT naproxen Yes [id number] 550mg Take 1 [facility] sodium 01-29 [id number] tablet by ity of (ANAPROX 00:00: mouth 2 [place] DS) 550 mg 00 (two) Medical tablet times Branch daily with meals. sulfamethox 2020- No [id number] 1{tbl} Take 1 Univers azole-trime 01-29 [id number] tablet by ity of thoprim 00:00: 04:59 mouth [place] 800-160 mg 00 :00 every 12 Medic al per tablet (twelve) Branc h hours for 5 days. mometasone Yes [id number] Apply to Univers 0.1 % 6-23 area(s) ity of lotion 00:00: daily. [address] triamcinolo 0 Yes [id number] Apply to Univers ne 6-23 area(s) 2 ity of acetonide 00:00: (two) [place] 0.1 % cream 00 times Medical daily. Branch mometasone 0 Yes [id number] Apply to Univers 0.1 % 6-23 area(s) ity of lotion 00:00: daily. [address] triamcinolo 0 Yes [id number] Apply to Univers ne 6-23 area(s) 2 ity of acetonide 00:00: (two) [place] 0.1 % cream 00 times Medical daily. Branch mometasone 1-0 Yes [id number] Apply to Univers 0.1 % 6-23 area(s) ity of lotion 00:00: daily. [place] [facility] triamcinolo 2020-0 Yes [id number] Apply to Univers ne 6-23 area(s) 2 ity of acetonide 00:00: (two) [place] 0.1 % cream 00 times Medical daily. Branch mometasone 1-0 Yes [id number] Apply to Univers 0.1 % 6-23 area(s) ity of lotion 00:00: daily. [place] [facility] triamcinolo 2020-0 Yes [id number] Apply to Univers ne 6-23 area(s) 2 ity of acetonide 00:00: (two) [place] 0.1 % cream 00 times Medical daily. Branch mometasone 1-0 Yes [id number] Apply to Univers 0.1 % 6-23 area(s) ity of lotion 00:00: daily. [place] [facility] triamcinolo 2020-0 Yes [id number] Apply to Univers ne 6-23 area(s) 2 ity of acetonide 00:00: (two) [place] 0.1 % cream 00 times Medical daily. Branch mometasone 1-0 Yes [id number] Apply to Univers 0.1 % 6-23 area(s) ity of lotion 00:00: daily. [place] [facility] triamcinolo 2020-0 Yes [id number] Apply to Univers ne 6-23 area(s) 2 ity of acetonide 00:00: (two) [place] 0.1 % cream 00 times Medical daily. Branch mometasone 1-0 Yes [id number] Apply to Univers 0.1 % 6-23 area(s) ity of lotion 00:00: daily. [place] [facility] triamcinolo 2020-0 Yes [id number] Apply to Univers ne 6-23 area(s) 2 ity of acetonide 00:00: (two) [place] 0.1 % cream 00 times Medical daily. Branch cetirizine 2020-0 Yes [id number] 20mg Take 2 Univers 10 mg 4-08 tablets by ity of tablet 00:00: mouth at [place] 00 bedtime. Medical Branch cetirizine 2021-0 Yes [id number] 20mg Take 2 Univers 10 mg 4-08 tablets by ity of tablet 00:00: mouth at [place] [address] bedtime. Medical Branch cetirizine Yes [id number] 20mg Take 2 Univers 10 mg 4-08 tablets by ity of tablet 00:00: mouth at [place] [address] bedtime. Medical Branch cetirizine Yes [id number] 20mg Take 2 Univers 10 mg 4-08 tablets by ity of tablet 00:00: mouth at [place] [address] bedtime. Medical Branch cetirizine Yes [id number] 20mg Take 2 Univers 10 mg 4-08 tablets by ity of tablet 00:00: mouth at [place] [address] bedtime. Medical Branch cetirizine Yes [id number] 20mg Take 2 Univers 10 mg 4-08 tablets by ity of tablet 00:00: mouth at [place] [address] bedtime. Medical Branch cetirizine Yes [id number] 20mg Take 2 Univers 10 mg 4-08 tablets by ity of tablet 00:00: mouth at [place] [address] bedtime. Medical Branch cetirizine Yes [id number] 20mg Take 2 Univers 10 mg 4-08 tablets by ity of tablet 00:00: mouth at [place] [address] bedtime. Medical Branch cetirizine Yes [id number] 20mg Take 2 Univers 10 mg 4-08 tablets by ity of tablet 00:00: mouth at [place] [address] bedtime. Medical Branch cetirizine Yes [id number] 20mg Take 2 Univers 10 mg 4-08 tablets by ity of tablet 00:00: mouth at [place] [address] bedtime. Medical Branch mometasone 2019-0 Yes [id number] Apply to Univers 0.1 % 6-04 area(s) ity of lotion 00:00: daily. [place] 00 Medical Branch triamcinolo 2019-0 Yes [id number] Apply to Univers ne 6-04 area(s) 2 ity of acetonide 00:00: (two) [place] 0.1 % cream 00 times Medical daily. Branch hydrocortis 0 Yes [id number] Apply to Univers one 2.5 % 6-04 affected ity of cream 00:00: area(s) 2 [place] 00 (two) Medical times Branch daily. mometasone 2019-0 Yes [id number] Apply to Univers 0.1 % 6-04 area(s) ity of lotion 00:00: daily. [place] [facility] triamcinolo 2020-0 Yes [id number] Apply to Univers ne 6-04 area(s) 2 ity of acetonide 00:00: (two) [place] 0.1 % cream 00 times Medical daily. Branch hydrocortis 2020-0 Yes [id number] Apply to Univers one 2.5 % 6-04 affected ity of cream 00:00: area(s) 2 [place] 00 (two) Medical times Branch daily. mometasone 2020-0 Yes [id number] Apply to Univers 0.1 % 6-04 area(s) ity of lotion 00:00: daily. [place] [facility] triamcinolo 2020-0 Yes [id number] Apply to Univers ne 6-04 area(s) 2 ity of acetonide 00:00: (two) [place] 0.1 % cream 00 times Medical daily. Branch hydrocortis 2020-0 Yes [id number] Apply to Univers one 2.5 % 6-04 affected ity of cream 00:00: area(s) 2 [place] 00 (two) Medical times Branch daily. mometasone 2020-0 Yes [id number] Apply to Univers 0.1 % 6-04 area(s) ity of lotion 00:00: daily. [place] [facility] triamcinolo 2020-0 Yes [id number] Apply to Univers ne 6-04 area(s) 2 ity of acetonide 00:00: (two) [place] 0.1 % cream 00 times Medical daily. Branch hydrocortis 2020-0 Yes [id number] Apply to Univers one 2.5 % 6-04 affected ity of cream 00:00: area(s) 2 [place] 00 (two) Medical times Branch daily. mometasone 2020-0 Yes [id number] Apply to Univers 0.1 % 6-04 area(s) ity of lotion 00:00: daily. [place] [facility] Branch triamcinolo 2020-0 Yes [id number] Apply to Univers ne 6-04 area(s) 2 ity of acetonide 00:00: (two) [place] 0.1 % cream 00 times Medical daily. Branch hydrocortis 2020-0 Yes [id number] Apply to Univers one 2.5 % 6-04 affected ity of cream 00:00: area(s) 2 [place] 00 (two) Medical times Branch daily. mometasone 2020-0 Yes [id number] Apply to Univers 0.1 % 6-04 area(s) ity of lotion 00:00: daily. [place] 00 Medical Branch triamcinolo 2020-0 Yes [id number] Apply to Univers ne 6-04 area(s) 2 ity of acetonide 00:00: (two) [place] 0.1 % cream 00 times Medical daily. Branch hydrocortis 2020-0 Yes [id number] Apply to Univers one 2.5 % 6-04 affected ity of cream 00:00: area(s) 2 [place] 00 (two) Medical times Branch daily. hydrocortis 2020-0 Yes [id number] Apply to Univers one 2.5 % 6-04 affected ity of cream 00:00: area(s) 2 [place] 00 (two) Medical times Branch daily. hydrocortis 2020-0 Yes [id number] Apply to Univers one 2.5 % 6-04 affected ity of cream 00:00: area(s) 2 [place] 00 (two) Medical times Branch daily. hydrocortis 2020-0 Yes [id number] Apply to Univers one 2.5 % 6-04 affected ity of cream 00:00: area(s) 2 [place] 00 (two) Medical times Branch daily. hydrocortis 2020-0 Yes [id number] Apply to Univers one 2.5 % 6-04 affected ity of cream 00:00: area(s) 2 [place] 00 (two) Medical times Branch daily. hydrocortis 2020-0 Yes [id number] Apply to Univers one 2.5 % 6-04 affected ity of cream 00:00: area(s) 2 [place] 00 (two) Medical times Branch daily. hydrocortis 2020-0 Yes [id number] Apply to Univers one 2.5 % 6-04 affected ity of cream 00:00: area(s) 2 [place] 00 (two) Medical times Branch daily. hydrocortis 2020-0 Yes [id number] Apply to Univers one 2.5 % 6-04 affected ity of cream 00:00: area(s) 2 [place] 00 (two) Medical times Branch daily. mometasone 2020-0 Yes [id number] Apply to Univers 0.1 % 6-04 area(s) ity of lotion 00:00: daily. [place] 00 Medical Branch triamcinolo 2020-0 Yes [id number] Apply to Univers ne 6-04 area(s) 2 ity of acetonide 00:00: (two) [place] 0.1 % cream 00 times Medical daily. Branch hydrocortis 2020-0 Yes [id number] Apply to Univers one 2.5 % 6-04 affected ity of cream 00:00: area(s) 2 [place] 00 (two) Medical times [place] daily. mometasone 2020-0 Yes [id number] Apply to Univers 0.1 % 6-04 area(s) ity of lotion 00:00: daily. [place] 00 Medical Branch triamcinolo 2020-0 Yes [id number] Apply to Univers ne 6-04 area(s) 2 ity of acetonide 00:00: (two) [place] 0.1 % cream 00 times Medical daily. Branch hydrocortis 2020-0 Yes [id number] Apply to Univers one 2.5 % 6-04 affected ity of cream 00:00: area(s) 2 [place] 00 (two) Medical times [place] daily. mometasone 2020-0 Yes [id number] Apply to Univers 0.1 % 6-04 area(s) ity of lotion 00:00: daily. [place] [facility] Branch triamcinolo 2020-0 Yes [id number] Apply to Univers ne 6-04 area(s) 2 ity of acetonide 00:00: (two) [place] 0.1 % cream 00 times Medical daily. Branch hydrocortis 2020-0 Yes [id number] Apply to Univers one 2.5 % 6-04 affected ity of cream 00:00: area(s) 2 [place] 00 (two) Medical times [place] daily. mometasone 2020-0 202- No [id number] Apply to Univers 0.1 % 6-04 06-23 area(s) ity of lotion 00:00: 00:00 daily. [place] 00 :00 Medical Branch triamcinolo 2020-0 2021- No [id number] Apply to Univers ne 6-04 06-23 area(s) 2 ity of acetonide 00:00: 00:00 (two) [place] 0.1 % cream 00 :00 times Medical daily. Branch BusPIRone BusPIRone 2020-0 Yes Na Kaplan 1 tablet Common HCl HCl 2-13 [facility]: [facility] Tizanidine Tizanidine 2020-0 2020- No Na Kaplan 1 tablet Common HCl HCl 06-20-14 as needed [facility] 00:[facility]: [facility]00 [facility] proMETHazin 2018-0 Yes [id number] 25mg Take 1 Univers e 25 mg 2-08 tablet by ity of tablet 00:00: mouth [place] 00 every 6 Medical (six) Branch hours as needed for Nausea and Vomiting (N/V). PNV 67-iron Yes [id number] 1{each} Take 1 Univers ps-folate 2-08 Each by ity of no.1-dha 00:00: mouth [place] (VITAFOL 00 daily. Medical ULTRA) 29 Branch mg iron- 1 mg-200 mg Cap proMETHazin 0 Yes [id number] 25mg Take 1 Univers e 25 mg 2-08 tablet by ity of tablet 00:00: mouth [place] 00 every 6 Medical (six) Branch hours as needed for Nausea and Vomiting (N/V). PNV 67-iron Yes [id number] 1{each} Take 1 Univers ps-folate 2-08 Each by ity of no.1-dha 00:00: mouth [place] (VITAFOL 00 daily. Medical ULTRA) 29 Branch mg iron- 1 mg-200 mg Cap proMETHazin 2019-0 Yes [id number] 25mg Take 1 Univers e 25 mg 2-08 tablet by ity of tablet 00:00: mouth [place] 00 every 6 Medical (six) Branch hours as needed for Nausea and Vomiting (N/V). PNV 67-iron 2019- Yes [id number] 1{each} Take 1 Univers ps-folate 2-08 Each by ity of no.1-dha 00:00: mouth [place] (VITAFOL 00 daily. Medical ULTRA) 29 Branch mg iron- 1 mg-200 mg Cap proMETHazin 2019-0 Yes [id number] 25mg Take 1 Univers e 25 mg 2-08 tablet by ity of tablet 00:00: mouth [place] 00 every 6 Medical (six) Branch hours as needed for Nausea and Vomiting (N/V). PNV 67-iron 2019 Yes [id number] 1{each} Take 1 Univers ps-folate 2-08 Each by ity of no.1-dha 00:00: mouth [place] (VITAFOL 00 daily. Medical ULTRA) 29 Branch mg iron- 1 mg-200 mg Cap proMETHazin 2019-0 Yes [id number] 25mg Take 1 Univers e 25 mg 2-08 tablet by ity of tablet 00:00: mouth [place] 00 every 6 Medical (six) Branch hours as needed for Nausea and Vomiting (N/V). PNV 67-iron 2019-0 Yes [id number] 1{each} Take 1 Univers ps-folate 2-08 Each by ity of no.1-dha 00:00: mouth [place] (VITAFOL 00 daily. Medical ULTRA) 29 Branch mg iron- 1 mg-200 mg Cap proMETHazin 2019-0 Yes [id number] 25mg Take 1 Univers e 25 mg 2-08 tablet by ity of tablet 00:00: mouth [place] 00 every 6 Medical (six) Branch hours as needed for Nausea and Vomiting (N/V). PNV 67-iron 2019-0 Yes [id number] 1{each} Take 1 Univers ps-folate 2-08 Each by ity of no.1-dha 00:00: mouth [place] (VITAFOL 00 daily. Medical ULTRA) 29 Branch mg iron- 1 mg-200 mg Cap proMETHazin 2019-0 Yes [id number] 25mg Take 1 Univers e 25 mg 2-08 tablet by ity of tablet 00:00: mouth [place] 00 every 6 Medical (six) Branch hours as needed for Nausea and Vomiting (N/V). PNV 67-iron 2019-0 Yes [id number] 1{each} Take 1 Univers ps-folate 2-08 Each by ity of no.1-dha 00:00: mouth [place] (VITAFOL 00 daily. Medical ULTRA) 29 Branch mg iron- 1 mg-200 mg Cap proMETHazin 2019-0 Yes [id number] 25mg Take 1 Univers e 25 mg 2-08 tablet by ity of tablet 00:00: mouth [place] 00 every 6 Medical (six) Branch hours as needed for Nausea and Vomiting (N/V). PNV 67-iron 2019-0 Yes [id number] 1{each} Take 1 Univers ps-folate 2-08 Each by ity of no.1-dha 00:00: mouth [place] (VITAFOL 00 daily. Medical ULTRA) 29 Branch mg iron- 1 mg-200 mg Cap proMETHazin 2019-0 Yes [id number] 25mg Take 1 Univers e 25 mg 2-08 tablet by ity of tablet 00:00: mouth [place] 00 every 6 Medical (six) Branch hours as needed for Nausea and Vomiting (N/V). PNV 67-iron 2019-0 Yes [id number] 1{each} Take 1 Univers ps-folate 2-08 Each by ity of no.1-dha 00:00: mouth [place] (VITAFOL 00 daily. Medical ULTRA) 29 Branch mg iron- 1 mg-200 mg Cap proMETHazin 2019-0 Yes [id number] 25mg Take 1 Univers e 25 mg 2-08 tablet by ity of tablet 00:00: mouth [place] 00 every 6 Medical (six) Branch hours as needed for Nausea and Vomiting (N/V). PNV 67-iron 2019-0 Yes [id number] 1{each} Take 1 Univers ps-folate 2-08 Each by ity of no.1-dha 00:00: mouth [place] (VITAFOL 00 daily. Medical ULTRA) 29 Branch mg iron- 1 mg-200 mg Cap proMETHazin 2019-0 Yes [id number] 25mg Take 1 Univers e 25 mg 2-08 tablet by ity of tablet 00:00: mouth [place] 00 every 6 Medical (six) Branch hours as needed for Nausea and Vomiting (N/V). PNV 67-iron 2019-0 Yes [id number] 1{each} Take 1 Univers ps-folate 2-08 Each by ity of no.1-dha 00:00: mouth [place] (VITAFOL 00 daily. Medical ULTRA) 29 Branch mg iron- 1 mg-200 mg Cap proMETHazin 2019-0 Yes [id number] 25mg Take 1 Univers e 25 mg 2-08 tablet by ity of tablet 00:00: mouth [place] 00 every 6 Medical (six) Branch hours as needed for Nausea and Vomiting (N/V). PNV 67-iron 2019-0 Yes [id number] 1{each} Take 1 Univers ps-folate 2-08 Each by ity of no.1-dha 00:00: mouth [place] (VITAFOL 00 daily. Medical ULTRA) 29 Branch mg iron- 1 mg-200 mg Cap proMETHazin 2019-0 Yes [id number] 25mg Take 1 Univers e 25 mg 2-08 tablet by ity of tablet 00:00: mouth [place] 00 every 6 Medical (six) Branch hours as needed for Nausea and Vomiting (N/V). PNV 67-iron 2019-0 Yes [id number] 1{each} Take 1 Univers ps-folate 2-08 Each by ity of no.1-dha 00:00: mouth [place] (VITAFOL 00 daily. Medical ULTRA) 29 Branch mg iron- 1 mg-200 mg Cap proMETHazin 2019-0 Yes [id number] 25mg Take 1 Univers e 25 mg 2-08 tablet by ity of tablet 00:00: mouth [place] 00 every 6 Medical (six) Branch hours as needed for Nausea and Vomiting (N/V). PNV 67-iron 2019-0 Yes [id number] 1{each} Take 1 Univers ps-folate 2-08 Each by ity of no.1-dha 00:00: mouth [place] (VITAFOL 00 daily. Medical ULTRA) 29 Branch mg iron- 1 mg-200 mg Cap proMETHazin 2019-0 Yes [id number] 25mg Take 1 Univers e 25 mg 2-08 tablet by ity of tablet 00:00: mouth [place] 00 every 6 Medical (six) Branch hours as needed for Nausea and Vomiting (N/V). PNV 67-iron 2019-0 Yes [id number] 1{each} Take 1 Univers ps-folate 2-08 Each by ity of no.1-dha 00:00: mouth [place] (VITAFOL 00 daily. Medical ULTRA) 29 Branch mg iron- 1 mg-200 mg Cap proMETHazin 2019-0 Yes [id number] 25mg Take 1 Univers e 25 mg 2-08 tablet by ity of tablet 00:00: mouth [place] 00 every 6 Medical (six) Branch hours as needed for Nausea and Vomiting (N/V). PNV 67-iron 2019-0 Yes [id number] 1{each} Take 1 Univers ps-folate 2-08 Each by ity of no.1-dha 00:00: mouth [place] (VITAFOL 00 daily. Medical ULTRA) 29 Branch mg iron- 1 mg-200 mg Cap proMETHazin 2019-0 Yes [id number] 25mg Take 1 Univers e 25 mg 2-08 tablet by ity of tablet 00:00: mouth [place] 00 every 6 Medical (six) Branch hours as needed for Nausea and Vomiting (N/V). PNV 67-iron 2019-0 Yes [id number] 1{each} Take 1 Univers ps-folate 2-08 Each by ity of no.1-dha 00:00: mouth [place] (VITAFOL 00 daily. Medical ULTRA) 29 Branch mg iron- 1 mg-200 mg Cap [id number] 2019-0 Yes [id number] 1{packa Take 1 Univers carb,glu-FA 2-04 ge} Package by it y of -dss-dha 00:00: mouth [place] (CITRANATAL 00 daily. Medica l 90 DHA, Branch ALGAL OIL,) 90 mg iron-1 mg -50 mg-300 mg combo pack [id number] 2019-0 Yes [id number] 1{packa Take 1 Univers carb,glu-FA 2-04 ge} Package by it y of -dss-dha 00:00: mouth [place] (CITRANATAL 00 daily. Medica l 90 DHA, Branch ALGAL OIL,) 90 mg iron-1 mg -50 mg-300 mg combo pack [id number] 2019-0 Yes [id number] 1{packa Take 1 Univers carb,glu-FA 2-04 ge} Package by it y of -dss-dha 00:00: mouth [place] (CITRANATAL 00 daily. Medica l 90 DHA, Branch ALGAL OIL,) 90 mg iron-1 mg -50 mg-300 mg combo pack [id number] 2019-0 Yes [id number] 1{packa Take 1 Univers carb,glu-FA 2-04 ge} Package by it y of -dss-dha 00:00: mouth [place] (CITRANATAL 00 daily. Medica l 90 DHA, Branch ALGAL OIL,) 90 mg iron-1 mg -50 mg-300 mg combo pack [id number] 2019-0 Yes [id number] 1{packa Take 1 Univers carb,glu-FA 2-04 ge} Package by it y of -dss-dha 00:00: mouth [place] (CITRANATAL 00 daily. Medica l 90 DHA, Branch ALGAL OIL,) 90 mg iron-1 mg -50 mg-300 mg combo pack [id number] 2019-0 Yes [id number] 1{packa Take 1 Univers carb,glu-FA 2-04 ge} Package by it y of -dss-dha 00:00: mouth [place] (CITRANATAL 00 daily. Medica l 90 DHA, Branch ALGAL OIL,) 90 mg iron-1 mg -50 mg-300 mg combo pack [id number] 2019-0 Yes [id number] 1{packa Take 1 Univers carb,glu-FA 2-04 ge} Package by it y of -dss-dha 00:00: mouth [place] (CITRANATAL 00 daily. Medica l 90 DHA, Branch ALGAL OIL,) 90 mg iron-1 mg -50 mg-300 mg combo pack [id number] 2019-0 Yes [id number] 1{packa Take 1 Univers carb,glu-FA 2-04 ge} Package by it y of -dss-dha 00:00: mouth [place] (CITRANATAL 00 daily. Medica l 90 DHA, Branch ALGAL OIL,) 90 mg iron-1 mg -50 mg-300 mg combo pack [id number] 2019-0 Yes [id number] 1{packa Take 1 Univers carb,glu-FA 2-04 ge} Package by it y of -dss-dha 00:00: mouth [place] (CITRANATAL 00 daily. Medica l 90 DHA, Branch ALGAL OIL,) 90 mg iron-1 mg -50 mg-300 mg combo pack [id number] 2019-0 Yes [id number] 1{packa Take 1 Univers carb,glu-FA 2-04 ge} Package by it y of -dss-dha 00:00: mouth [place] (CITRANATAL 00 daily. Medica l 90 DHA, Branch ALGAL OIL,) 90 mg iron-1 mg -50 mg-300 mg combo pack [id number] 2019-0 Yes [id number] 1{packa Take 1 Univers carb,glu-FA 2-04 ge} Package by it y of -dss-dha 00:00: mouth [place] (CITRANATAL 00 daily. Medica l 90 DHA, Branch ALGAL OIL,) 90 mg iron-1 mg -50 mg-300 mg combo pack [id number] 2019-0 Yes [id number] 1{packa Take 1 Univers carb,glu-FA 2-04 ge} Package by it y of -dss-dha 00:00: mouth [place] (CITRANATAL 00 daily. Medica l 90 DHA, Branch ALGAL OIL,) 90 mg iron-1 mg -50 mg-300 mg combo pack [id number] 2019-0 Yes [id number] 1{packa Take 1 Univers carb,glu-FA 2-04 ge} Package by it y of -dss-dha 00:00: mouth [place] (CITRANATAL 00 daily. Medica l 90 DHA, Branch ALGAL OIL,) 90 mg iron-1 mg -50 mg-300 mg combo pack [id number] 2019-0 Yes [id number] 1{packa Take 1 Univers carb,glu-FA 2-04 ge} Package by it y of -dss-dha 00:00: mouth [place] (CITRANATAL 00 daily. Medica l 90 DHA, Branch ALGAL OIL,) 90 mg iron-1 mg -50 mg-300 mg combo pack [id number] 2019-0 Yes [id number] 1{packa Take 1 Univers carb,glu-FA 2-04 ge} Package by it y of -dss-dha 00:00: mouth [place] (CITRANATAL 00 daily. Medica l 90 DHA, Branch ALGAL OIL,) 90 mg iron-1 mg -50 mg-300 mg combo pack [id number] 2019-0 Yes [id number] 1{packa Take 1 Univers carb,glu-FA 2-04 ge} Package by it y of -dss-dha 00:00: mouth [place] (CITRANATAL 00 daily. Medica l 90 DHA, Branch ALGAL OIL,) 90 mg iron-1 mg -50 mg-300 mg combo pack [id number] 2019-0 Yes [id number] 1{packa Take 1 Univers carb,glu-FA 2-04 ge} Package by it y of -dss-dha 00:00: mouth [place] (CITRANATAL 00 daily. Medica l 90 DHA, Branch ALGAL OIL,) 90 mg iron-1 mg -50 mg-300 mg combo pack Clobetasol 2019-0 Yes Apply to Un magda (CLOBEX) 1-11 area(s) as ity o f 0.05 % 15:06: needed. [place] spray 41 Medical Branch 2019-0 Yes Take by Unive rs vit/iron 1-11 mouth. ity of fum/folic 15:06: [facility] (RIGHT 41 Medical STEP Branch VITAMINS ORAL) Clobetasol 2019-0 Yes Apply to Un magda (CLOBEX) 1-11 area(s) as ity o f 0.05 % 15:06: needed. [place] spray 41 Medical Branch 2019-0 Yes Take by Unive rs vit/iron 1-11 mouth. ity of fum/folic 15:06: [place] ac (RIGHT 41 Medical STEP Branch VITAMINS ORAL) Clobetasol 2019-0 Yes Apply to Un magda (CLOBEX) 1-11 area(s) as ity o f 0.05 % 15:06: needed. [place] spray 41 Medical Branch 2019-0 Yes Take by Unive rs vit/iron 1-11 mouth. ity of fum/folic 15:06: [facility] (RIGHT 41 Medical STEP Branch VITAMINS ORAL) Clobetasol 2019-0 Yes Apply to Un magda (CLOBEX) 1-11 area(s) as ity o f 0.05 % 15:06: needed. [place] spray Medical Branch 2019-0 Yes Take by Unive rs vit/iron 1-11 mouth. ity of fum/folic 15:06: [facility] [facility] (RIGHT 41 Medical STEP Branch VITAMINS ORAL) Clobetasol 2019-0 Yes Apply to Un magda (CLOBEX) 1-11 area(s) as ity o f 0.05 % 15:06: needed. [place] [facility] 2019-0 Yes Take by Unive rs vit/iron 1-11 mouth. ity of fum/folic 15:06: [facility] (RIGHT 41 Medical STEP Branch VITAMINS ORAL) Clobetasol 2019-0 Yes Apply to Un magda (CLOBEX) 1-11 area(s) as ity o f 0.05 % 15:06: needed. [place] [facility] 2019-0 Yes Take by Unive rs vit/iron 1-11 mouth. ity of fum/folic 15:06: [facility] (RIGHT 41 Medical STEP Branch VITAMINS ORAL) Clobetasol 2019-0 Yes Apply to Un magda (CLOBEX) 1-11 area(s) as ity o f 0.05 % 15:06: needed. [place] [facility] 2019-0 Yes Take by Unive rs vit/iron 1-11 mouth. ity of fum/folic 15:06: [facility] (RIGHT 41 Medical STEP Branch VITAMINS ORAL) Clobetasol 2019-0 Yes Apply to Un magda (CLOBEX) 1-11 area(s) as ity o f 0.05 % 15:06: needed. [place] [facility] 2019-0 Yes Take by Unive rs vit/iron 1-11 mouth. ity of fum/folic 15:06: [facility] (RIGHT 41 Medical STEP Branch VITAMINS ORAL) Clobetasol 2019-0 Yes Apply to Un magda (CLOBEX) 1-11 area(s) as ity o f 0.05 % 15:06: needed. [place] spray 41 Medical Branch 2019-0 Yes Take by Unive rs vit/iron 1-11 mouth. ity of fum/folic 15:06: [facility] (RIGHT 41 Medical STEP Branch VITAMINS ORAL) Clobetasol 2019-0 Yes Apply to Un magda (CLOBEX) 1-11 area(s) as ity o f 0.05 % 15:06: needed. [place] [facility] 2019-0 Yes Take by Unive rs vit/iron 1-11 mouth. ity of fum/folic 15:06: [facility] (RIGHT 41 Medical STEP Branch VITAMINS ORAL) Clobetasol 2019-0 Yes Apply to Un magda (CLOBEX) 1-11 area(s) as ity o f 0.05 % 15:06: needed. [place] [facility] 2019-0 Yes Take by Unive rs vit/iron 1-11 mouth. ity of fum/folic 15:06: [facility] (RIGHT 41 Medical STEP Branch VITAMINS ORAL) Clobetasol 2019-0 Yes Apply to Un magda (CLOBEX) 1-11 area(s) as ity o f 0.05 % 15:06: needed. [place] [facility] 2019-0 Yes Take by Unive rs vit/iron 1-11 mouth. ity of fum/folic 15:06: [facility] (RIGHT 41 Medical STEP Branch VITAMINS ORAL) Clobetasol 2019-0 Yes Apply to Un magda (CLOBEX) 1-11 area(s) as ity o f 0.05 % 15:06: needed. [place] [facility] 2019-0 Yes Take by Unive rs vit/iron 1-11 mouth. ity of fum/folic 15:06: [facility] (RIGHT 41 Medical STEP Branch VITAMINS ORAL) Clobetasol 2019-0 Yes Apply to Un magda (CLOBEX) 1-11 area(s) as ity o f 0.05 % 15:06: needed. [place] [facility] 2019-0 Yes Take by Unive rs vit/iron 1-11 mouth. ity of fum/folic 15:06: [facility] (RIGHT 41 Medical STEP Branch VITAMINS ORAL) Clobetasol 2019-0 Yes Apply to Un magda (CLOBEX) 1-11 area(s) as ity o f 0.05 % 15:06: needed. [place] [facility] 2019-0 Yes Take by Unive rs vit/iron 1-11 mouth. ity of fum/folic 15:06: [facility] (RIGHT 41 Medical STEP Branch VITAMINS ORAL) Clobetasol 2018-0 Yes Apply to Un magda (CLOBEX) 1-11 area(s) as ity o f 0.05 % 15:06: needed. [place] [facility] 2019- Yes Take by Unive rs vit/iron 1-11 mouth. ity of fum/folic 15:06: [facility] (RIGHT 41 Medical STEP Branch VITAMINS ORAL) Clobetasol 2018-0 Yes Apply to Un magda (CLOBEX) 1-11 area(s) as ity o f 0.05 % 09:06: needed. [place] [facility] 2019 Yes Take by Unive rs vit/iron 1-11 mouth. ity of fum/folic 09:06: [facility] (RIGHT 41 Medical STEP Branch VITAMINS ORAL) Clobetasol Clobetasol Yes Na Kaplan 1 Common Propionate Propionate applicatio Spirit n to - [facility] affected [facility] Clobetasol Clobetasol Yes Na Kaplan 1 Common Prop Prop applicatio Spirit Emollient Emollient n - [facility] Venlafaxine Venlafaxine Yes Na Kaplan 1 capsule Common HCl ER HCl ER with food Spirit - [facility] Immunizations Ordered Filled Immunization Date Status Comments Sour e Immunization Name Name Influenza Virus 2018-05-18 Completed Universit y of Vaccine Quad .5 mL 00:00:00 [facility] 6+ MO Branch Influenza Virus 2018-05-18 Completed Universit y of Vaccine Quad .5 mL 00:00:00 [facility] 6+ MO Branch Influenza Virus 2018-05-18 Completed Universit y of Vaccine Quad .5 mL 00:00:00 [facility] 6+ MO Branch Influenza Virus 2018-05-18 Completed Universit y of Vaccine [place] .5 mL 00:00:00 [facility] Influenza Virus 2018-05-18 Completed Universit y of Vaccine [place] .5 mL 00:00:00 [place] [facility] 6+ MO Branch Influenza Virus 2018-05-18 Completed Universit y of Vaccine [place] .5 mL 00:00:00 [place] [facility] 6+ MO Branch Influenza Virus 2018-05-18 Completed Universit y of Vaccine [place] .5 mL 00:00:00 [place] [facility] 6+ MO Branch Influenza Virus 2018-05-18 Completed Universit y of Vaccine [place] .5 mL 00:00:00 [place] [facility] 6+ MO Branch Influenza Virus 2018-05-18 Completed Universit y of Vaccine [place] .5 mL 00:00:00 [place] [facility] 6+ MO Branch Influenza Virus 2018-05-18 Completed Universit y of Vaccine [place] .5 mL 00:00:00 [place] [facility] 6+ MO Branch Influenza Virus 2018-05-18 Completed Universit y of Vaccine [place] .5 mL 00:00:00 [place] [facility] 6+ MO Branch Influenza Virus 2018-05-18 Completed Universit y of Vaccine [place] .5 mL 00:00:00 [place] [facility] 6+ MO Branch Influenza Virus 2018-05-18 Completed Universit y of Vaccine [place] .5 mL 00:00:00 [place] [facility] 6+ MO Branch Influenza Virus 2018-05-18 Completed Universit y of Vaccine [place] .5 mL 00:00:00 [place] [facility] 6+ MO Branch Influenza Virus 2018-05-18 Completed Universit y of Vaccine [place] .5 mL 00:00:00 [place] [facility] 6+ MO Branch Influenza Virus 2018-05-18 Completed Universit y of Vaccine [place] .5 mL 00:00:00 [place] [facility] 6+ MO Branch Influenza Virus 2018-05-18 Completed Universit y of Vaccine Quad .5 mL 00:00:00 [place] [facility] 6+ MO Branch TDAP (ADACEL) 2014-01-25 Completed University of VACCINE 00:00:00 [facility] TDAP (ADACEL) 2014-01-25 Completed University of VACCINE 00:00:00 [facility] TDAP (ADACEL) 2014-01-25 Completed University of VACCINE 00:00:00 [facility] TDAP (ADACEL) 2014-01-25 Completed University of VACCINE 00:00:00 [facility] TDAP (ADACEL) 2014-01-25 Completed University of VACCINE 00:00:00 [place] [facility] TDAP (ADACEL) 2014-01-25 Completed University of VACCINE 00:00:00 [place] [facility] TDAP (ADACEL) 2014-01-25 Completed University of VACCINE 00:00:00 [place] [facility] TDAP (ADACEL) 2014-01-25 Completed University of VACCINE 00:00:00 [place] [facility] TDAP (ADACEL) 2014-01-25 Completed University of VACCINE 00:00:00 [place] [facility] TDAP (ADACEL) 2014-01-25 Completed University of VACCINE 00:00:00 [place] [facility] TDAP (ADACEL) 2014-01-25 Completed University of VACCINE 00:00:00 [place] [facility] TDAP (ADACEL) 2014-01-25 Completed University of VACCINE 00:00:00 [place] [facility] TDAP (ADACEL) 2014-01-25 Completed University of VACCINE 00:00:00 [facility] TDAP (ADACEL) 2014-01-25 Completed University of VACCINE 00:00:00 [facility] TDAP (ADACEL) 2014-01-25 Completed University of VACCINE 00:00:00 [facility] TDAP (ADACEL) 2014-01-25 Completed University of VACCINE 00:00:00 [facility] TDAP (ADACEL) 2014-01-25 Completed University of VACCINE 00:00:00 [facility] HPV 2009-02-01 Completed University of 00:00:00 [place] [facility] HPV 2009-02-01 Completed University of 00:00:00 [place] [facility] HPV 2009-02-01 Completed University of 00:00:00 [place] [facility] HPV 2009-02-01 Completed University of 00:00:00 [place] [facility] HPV 2009-02-01 Completed University of 00:00:00 [place] [facility] HPV 2009-02-01 Completed University of 00:00:00 [place] [facility] HPV 2009-02-01 Completed University of 00:00:00 [place] [facility] HPV 2009-02-01 Completed University of 00:00:00 [place] [facility] HPV 2009-02-01 Completed University of 00:00:00 [place] [facility] HPV 2009-02-01 Completed University of 00:00:00 [place] [facility] HPV 2009-02-01 Completed University of 00:00:00 [place] [facility] HPV 2009-02-01 Completed University of 00:00:00 [place] [facility] HPV 2009-02-01 Completed University of 00:00:00 [place] [facility] HPV 2009-02-01 Completed University of 00:00:00 [place] [facility] HPV 2009-02-01 Completed University of 00:00:00 [place] [facility] HPV 2009-02-01 Completed University of 00:00:00 [place] [facility] HPV 2009-02-01 Completed University of 00:00:00 [place] [facility] HPV 2008-08-01 Completed University of 00:00:00 [place] [facility] HPV 2008-08-01 Completed University of 00:00:00 [place] [facility] HPV 2008-08-01 Completed University of 00:00:00 [place] [facility] HPV 2008-08-01 Completed University of 00:00:00 [place] [facility] HPV 2008-08-01 Completed University of 00:00:00 [place] [facility] HPV 2008-08-01 Completed University of 00:00:00 [place] [facility] HPV 2008-08-01 Completed University of 00:00:00 [place] [facility] HPV 2008-08-01 Completed University of 00:00:00 [place] [facility] HPV 2008-08-01 Completed University of 00:00:00 [place] [facility] HPV 2008-08-01 Completed University of 00:00:00 [place] [facility] HPV 2008-08-01 Completed University of 00:00:00 [place] [facility] HPV 2008-08-01 Completed University of 00:00:00 [facility] HPV 2008-08-01 Completed University of 00:00:00 [facility] HPV 2008-08-01 Completed University of 00:00:00 [place] [facility] HPV 2008-08-01 Completed University of 00:00:00 [place] [facility] HPV 2008-08-01 Completed University of 00:00:00 [place] [facility] HPV 2008-08-01 Completed University of 00:00:00 [facility] Vital Signs Vital Name Observation Time Observation Value Comments Source Systolic blood 2021-01-29 13:00:00 102 mm[Hg] Univer sity of pressure [facility] Diastolic blood 2021-01-29 13:00:00 81 mm[Hg] Unive rsity of pressure [facility] Heart rate 2021-01-29 13:00:00 87 /min Universi ty of [facility] Respiratory rate 2021-01-29 13:00:00 16 /min Univ ersity of [facility] Oxygen saturation in 2021-01-29 13:00:00 97 /min [facility] Arterial blood by [facility] Pulse oximetry Branch Body temperature 2021-01-29 12:19:00 37.5 Ni [facility] Body height 2021-01-29 12:19:00 149.9 cm [facility] Body weight 2021-01-29 12:19:00 72.576 kg [facility] BMI 2021-01-29 12:19:00 32.32 kg/m2 [facility] Procedures Procedure Date / Time Performed Performing Clinician Rizwan e CT ABDOMEN PELVIS W 2021-01-29 13:18:22 Carlos Gamble [facility] CONTRAST [facility] Branch LIPASE 2021-01-29 12:35:00 [facility] COMP. METABOLIC PANEL 2021-01-29 12:35:00 Carlos Gamble [facility] ([id number]) [facility] CBC WITH DIFF 2021-01-29 12:35:00 [facility] URINALYSIS 2021-01-29 12:35:00 [facility] POCT TEST 2021-01-29 12:34:00 Carlos Gamble [facility] NOTICE OF PRIVACY 2021-01-29 12:32:27 Doctor Unassigned, No [facility] [place] NOTICE OF PRIVACY 2021-01-29 12:16:09 Doctor Unassigned, No [facility] REFERRAL- 2020-12-22 05:01:00 Doctor Unassigned, No [facility] REQUEST/RESPONSE [facility] AUDIOGRAM 2020-12-07 05:01:00 Doctor Unassigned, No [facility] REFERRAL- 2020-11-26 05:01:00 Doctor Unassigned, No [facility] REQUEST/RESPONSE Name [facility] ASSIGNMENT OF BENEFITS 2019-10-10 19:35:01 Doctor Unassigned, No [facility] Encounters Start End Encounter Admission Attending Care Care Encounter Source Date/Time Date/Time Type Type Clinicians Facility Department ID 2021-10-07 Outpatient Daysi Kaplan [facility] [id number] 2 Common 15:23:01 [facility] 2021-06-02 Outpatient Kaplan, Na STLMLC STLMLC [id number] 2 Common 13:09:44 [id number] [facility] 2021-06-02 Outpatient Kaplan, Na STLMLC STLMLC [id number] 2 Common 13:09:23 [id number] [facility] 2021-06-02 Outpatient Kaplan, Na STLMLC STLMLC [id number] 2 Common 12:49:44 [id number] [facility] 2021-06-02 Outpatient Kalpan, Na STLMLC STLMLC [id number] 2 Common 12:43:05 [id number] [facility] 2021-06-02 Outpatient Kaplan, Na STLMLC STLMLC [id number] 2 Common 12:08:09 [id number] [facility] 2021-06-02 Outpatient Kaplan, Na STLMLC STLMLC [id number] 2 Common 12:04:22 [id number] [facility] 2021-06-02 Outpatient Kaplan, Na STLMLC STLMLC [id number] 2 Common 12:03:18 [id number] [facility] 2021-06-02 Outpatient Kaplan, Na STLMLC STLMLC [id number] 2 Common 12:02:54 [id number] [facility] 2021-06-02 Outpatient Kaplan, Na STLMLC STLMLC [id number] 2 Common 11:07:39 [id number] [facility] 2021-03-09 Emergency [facility] [id number] Univers 01:03:39 ity of [facility] 2021-01-29 2021-01-29 Emergency [facility] [id number] Univers 07:17:00 08:56:00 Carlos Thompson [id number] lesli Rivera 4.2.7.2.686 [facility] [id number] [place] [address] Branch 2020-12-30 2020-12-30 Outpatient STLMLC STLMLC [id number] Common 00:00:00 00:00:00 [facility] 2020-12-22 2020-12-22 Orders Doctor EMERITA [id number] Univers 00:00:00 00:00:00 Only Unassigned, SAMMIE [id number] ity of [facility] [id number] Kapil as [id number] [facility] [address] [place] 2020-12-07 2020-12-07 Ancillary Rhoda Matos [facility] [id number] Univers 15:46:45 16:31:45 Visit Lona Smith [id number] 0 ity [facility] [place] [id number] [facility] 141 Branch 2020-12-07 2020-12-07 Outpatient R [facility] [id number] Univers 16:00:00 16:00:00 [id number] ity [facility] 2020-12-07 2020-12-07 [facility] [id number] Univers 16:00:00 16:00:00 LONA ity [facility] 2020-12-07 2020-12-07 Orders Doctor EFLDER [id number] Univers 00:00:00 00:00:00 Only Unassigned, SAMMIE [id number] ity of [facility] 4.2.7.2.686 Kapil as [id number] [address] 2020-11-26 2020-11-26 Orders Doctor FELDER [id number] Univers 00:00:00 00:00:00 Only Unassigned, SAMMIE [id number] ity of [facility] 4.2.7.2.686 Kapil as [id number] [address] 2020-11-23 2020-11-23 Telephone Manfred Julian [facility] [id number] Univers 00:00:00 00:00:00 [facility] [id number] i ty [id number] [address] Branch 2020-10-26 2020-10-26 Telephone Manfred Julian [facility] 1.2.840.11 [id number] Univers 00:00:00 00:00:00 [facility] [id number] i ty [place] [id number] [facility] [address] [place] 2020-10-21 2020-10-21 Outpatient STLMLC STLMLC [id number] Common 00:00:00 00:00:00 [facility] 2020-10-08 2020-10-08 Outpatient STLMLC STLC [id number] Common 00:00:00 00:00:00 [facility] 2020-09-17 2020-09-17 Outpatient R [facility] [id number] Univers 16:45:00 16:45:00 [id number] [facility] 2020-09-17 2020-09-17 Outpatient R MANFRED JULIAN [facility] [id number] Univers 16:45:00 16:45:00 [facility] 2020-08-13 2020-08-13 Office Manfred Julian [facility] [id number] Univers 13:00:04 13:44:07 Visit [facility] [id number] i ty of [place] [id number] [facility] [address] [place] 2020-08-13 2020-08-13 Outpatient R [facility] [id number] Univers 13:30:00 13:30:00 [id number] [facility] 2020-08-13 2020-08-13 Outpatient R MANFRED JULIAN [facility] [id number] Univers 13:30:00 13:30:00 [facility] 2020-07-28 2020-07-28 Patient Levy [facility] 1.2.840.114 [id number] Univers 00:00:00 00:00:00 Outreach Maximiliano PRIMARY [id number] i ty of [facility] [place] [id number] Md dical [address] [place] 2020-07-28 2020-07-28 Outpatient STLMLC STLMLC [id number] Common 00:00:00 00:00:00 [facility] 2020-07-27 2020-07-27 Outpatient STLMLC STLMLC [id number] Common 00:00:00 00:00:00 [facility] 2020-07-24 2020-07-24 Outpatient STLMLC STLMLC [id number] Common 00:00:00 00:00:00 [facility] 2020-07-15 2020-07-15 Outpatient STLMLC STLMLC [id number] Common 00:00:00 00:00:00 [facility] 2020-07-14 2020-07-14 Outpatient STLMLC STLMLC [id number] Common 00:00:00 00:00:00 [facility] 2020-04-01 2020-04-01 Outpatient STLMLC STLMLC [id number] Common 00:00:00 00:00:00 [facility] 2020-03-17 2020-03-17 Outpatient STLMLC STLMLC [id number] Common 00:00:00 00:00:00 [facility] 2020-02-13 2020-02-14 Office Manfred Julian [facility] 1.2.840.114 [id number] Univers 15:15:37 16:46:30 Visit [facility] [id number] i ty of CLINICS 4.2.7.2.686 [facility] [id number] [address] 2020-02-13 2020-02-14 Office Manfred Julian [facility] 1.2.840.114 [id number] 15:15:37 16:46:30 Visit [facility] [id number] CLINICS 4[address]7.[id number] [facility] 2020-02-13 2020-02-13 Outpatient R [facility] [id number] Univers 15:00:00 15:00:00 [facility] 2020-02-13 2020-02-13 Outpatient R GOPAL JULIANY [facility] [id number] Univers 15:00:00 15:00:00 [facility] 2019-10-10 2019-10-10 Office Manfred Julian [facility]ERS[facility] 1.2.840.114 [id number] Univers 14:32:33 16:55:00 Visit Aura BELLA [id number] i ty [place] [id number] [address] 2019-10-10 2019-10-10 Outpatient R [facility] [id number] Univers 15:00:00 15:00:00 [id number] ity [facility] 2019-10-10 2019-10-10 Outpatient R MANFRED JLUIAN [facility] [id number] Univers 15:00:00 15:00:00 ity [facility] 2019-10-10 2019-10-10 Orders Doctor EMERITA 1.2.840.114 [id number] Univers 00:00:00 00:00:00 Only Unassigned, SAMMIE 350.1.13.10 ity of [facility] 4.2.7.2.686 Kapil as [id number] [facility] [address] [place] 2019-07-18 2019-07-18 Out[facility] [id number] Common 11:00:00 11:00:[address] [facility] 2019-06-20 2019-06-20 Out[facility] [id number] Common 13:20:00 13:20:00 [address] [employer] [address] [facility] 2019-06-10 2019-06-10 Out[facility] [id number] Common 15:38:00 15:38:00 [address] [employer] [address] Sp[address] [facility] Results Test Description Test Time Test Comments Results Result Comments Source COMP. METABOLIC PANEL (72200) 2021-01-29 13:17:31 Test Item Value Reference Range Interpretation Comme nts NA (test code = 3980801171) 138 mmol/L 135-145 K (test code = 9867051525) 3.7 mmol/L 3.5-5.0 CL (test code = 1366583203) 104 mmol/L 98-108 CO2 TOTAL (test code = 1163375209) 27 mmol/L 23-31 AGAP (test code = 0150617996) 2-16 BUN (test code = 6894982109) 8 mg/dL 7-23 GLUCOSE (test code = 4399268152) 92 mg/dL 70-110 CREATININE (test code = 0.47 mg/dL 0.50-1.04 L 5109089172) TOTAL BILI (test code = 0.6 mg/dL 0.1-1.4 3600536565) CALCIUM (test code = 3589705274) 9.1 mg/dL 8.6-10.6 T PROTEIN (test code = 7088678450) 7.8 g/dL 6.3-8.2 ALBUMIN (test code = 2238944949) 4.5 g/dL 3.5-5.0 ALK PHOS (test code = 5277712697) 56 U/L 34-122 ALTv (test code = 1742-6) 15 U/L 5-35 AST(SGOT) (test code = 0549621914) 25 U/L 13-40 eGFR (test code = 7065861791) mL/min/1.73m2 BRUCE (test code = BRUCE) Association of Glomerular Filtration Rate (GFR) and Staging of Kidney Disease* + +-------- + ------+| GFR (mL/min/1.73 m2) ?| With Kidney Damage ?| ?Without Kidney Damage+ +-- + +| ?>90 ?| ?Stage one ?| ? Normal ?+ +------- + -------+| ?60-89 ?| ?Stage two ?| ? Decreased GFR ? + +-------- + ------+| ?30-59 ?| ?Stage three ?| ? Stage three ? + +-------- + ------+| ?15-29 ?| ?Stage four ? | ? Stage four ?+ +------- + -------+| ?<15 (or dialysis) ? ?| ?Stage five ? | ? Stage five ?+ +------- + -------+ *Each stage assumes the associated GFR level has been in effect for at least three months. ?Stages 1 to 5, with or without kidney disease, indicate chronic kidney disease. Notes: Determination of stages one and two (with eGFR >59mL/min/1.73 m2) requires estimation of kidney damage for at least three months as defined by structural or functional abnormalities of the kidney, manifested by either:Pathological abnormalities or Markers of kidney damage (including abnormalities in the composition of the blood or urine or abnormalities in imaging tests). Lab Interpretation (test code = Abnormal 35436-2) [facility] 13:17[facility]11 Test Item Value Reference Range Interpretation Comments LIPASE (test code = 9114882787) 33 U/L 0-220 Lab Interpretation (test code = Normal 93517-5) [facility] [id number] 12:52:30 Test Item Value Reference Range Interpretation Comments WBC (test code = See_Comment [Automated message] 2690-2) The system [employer] generated this result transmitted ref erence range: 4.30 - 1 1.10 10*3/?L. The re ference range was not u sed to interpret this result as normal/abnor mal. RBC (test code = See_Comment [Automated message] 319-8) The system [employer] generated this result transmitted ref erence range: 3.93 - 5 .25 10*6/?L. The re ference range was not u sed to interpret this result as normal/abnor mal. HGB (test code = 12.7 g/dL 11.6-15.0 718-7) HCT (test code = 39.9 % 35.7-45.2 4544-3) MCV (test code = 84.2 fL 80.6-95.5 787-2) MCH (test code = 26.8 pg 25.9-32.8 785-6) MCHC (test code = 31.8 g/dL 31.6-35.1 786-4) RDW-SD (test code 43.8 fL 39.0-49.9 = 56592-7) RDW-CV (test code 14.6 % 12.0-15.5 = 788-0) PLT (test code = See_Comment [Automated message] 547-3) The system [employer] generated this result transmitted ref erence range: 166 - 35 8 10*3/?L. The re ference range was not u sed to interpret this result as normal/abnor mal. MPV (test code = 11.0 fL 9.5-12.9 41236-8) NRBC/100 WBC (test See_Comment [Automat ed message] code = 7351153023) The syste m which generated this result transmitted ref erence range: 0.0 - 10 .0 /100 WBCs. The refer ence range was not u sed to interpret this result as normal/abnor mal. NRBC x10^3 (test <0.01 See_Comment [Automated message] code = 8279397575) The syste m which generated this result transmitted ref erence range: 10*3/?L. The reference range was not used to interpr et this result as normal/abnormal . GRAN MAT (NEUT) % 51.3 % (test code = 770-8) IMM GRAN % (test 0.40 % code = 9288424047) LYMPH % (test code 39.5 % = 736-9) MONO % (test code 6.9 % = 5905-5) EOS % (test code = 1.6 % 713-8) BASO % (test code 0.3 % = 706-2) GRAN MAT 3.95 10*3/uL 1.88-7.09 x10^3(ANC) (test code = 5641672363) IMM GRAN x10^3 0.03 10*3/uL 0.00-0.06 (test code = 6961591242) LYMPH x10^3 (test 3.04 10*3/uL 1.32-3.29 code = 731-0) MONO x10^3 (test 0.53 10*3/uL 0.33-0.92 code = 742-7) EOS x10^3 (test 0.12 10*3/uL 0.03-0.39 code = 711-2) BASO x10^3 (test <0.03 0.01-0.07 code = 704-7) [id number] 12:34:00 Test Item Value Reference Range Interpretation Comments POCT PREG (test code = 1605) negative On board controls acceptable with present C Line (test code = 3574) POCT PREG LOT # (test code = 3575) [id number] POCT PREG TEST DATE (test 2022-05-07 code = 3576) Lab Interpretation (test code = Normal 36317-2) [facility]"
[2021-11-26] MEDS ORDERED: LIDOCAINE 1% MPF 5 ML VIAL ONE (22:34)
[2021-11-26] MEDS ORDERED: BUPIVACAINE 0.5% PF 10 ML VIAL ONE (22:34)
--- NOTE | 2021-11-26 22:58 | EDPHYS ---
Physician Documentation [facility] Name: Shobha Rodriguez Age: 26 yrs Sex: Female : 1995 Arrival Date: 11/26/2021 Time: 21:59 Bed 15 Private MD: ED Physician Ember Brown HPI: 11/26 22:55 This 26 yrs old Female presents to ER via Ambulatory with complaints of lump jmm on thigh. 22:55 The patient presents with pain, that is acute. Onset: The symptoms/episode jmm began/occurred gradually, 2 day(s) ago. Modifying factors: The symptoms are alleviated by nothing. the symptoms are aggravated by nothing. Associated signs and symptoms: Pertinent positives: swelling, Pertinent negatives fever. The patient has experienced a previous episode. 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 - Social history:: Smoking status: Patient denies any tobacco usage or history of. ROS: 22:55 Constitutional: Negative for fever, chills, and weight loss, Cardiovascular: Negative jmm for chest pain, palpitations, and edema, Respiratory: Negative for shortness of breath, cough, wheezing, and pleuritic chest pain. 22:55 Skin: Positive for swelling. 22:55 All other systems are negative. Exam: 22:55 Constitutional: This is a well developed, well nourished patient who is awake, alert, jmm and in no acute distress. Head/Face: atraumatic. Eyes: EOMI, no conjunctival erythema appreciated ENT: Moist Mucus Membranes Neck: Trachea midline, Supple Chest/axilla: Normal chest wall appearance and motion. Cardiovascular: Regular rate and rhythm. No edema appreciated Respiratory: Normal respirations, no respiratory distress appreciated Abdomen/GI: Non distended Back: Normal ROM 22:55 Skin: Abscess noted to the left upper thigh, approximately 4 cm in diameter, induration is appreciated, mildly tender to palpation. 22:55 Neuro: Orientation: is normal, Mentation: is normal, Memory: is normal. 22:55 Psych: Behavior/mood is pleasant, cooperative. Vital Signs: 22:13 BP 118 / 81; Pulse 105; Resp 18; Temp 98.1(TE); Pulse Ox 100% ; Weight 74.84 kg; Height 1 4 ft. 11 in. (149.86 cm); Pain 8/10; 22:22 BP 110 / 77; Pulse 106; Resp 18; Temp 98.6(O); Pulse Ox 99% on R/A; kd3 22:13 Body Mass Index 33.33 (74.84 kg, 149.86 cm) [facility] Procedures: 22:57 I \T\ D: Incision and drainage was performed for an abscess of the left leg Prepped with [facility] Betadine, Anesthetized with 10 ml's 1% Lidocaine. Incised with #11 blade. Drained moderate amount purulent fluid. Packed with iodoform gauze, Dressing: sterile 4x4 gauze, the patient tolerated the procedure well. MDM: 22:28 Patient medically screened. [facility] 22:57 Data reviewed: vital signs, nurses notes. Counseling: I had a detailed discussion with [facility] the patient and/or guardian regarding: the historical points, exam findings, and any diagnostic results supporting the discharge/admit diagnosis, the need for outpatient follow up, to return to the emergency department if symptoms worsen or persist or if there are any questions or concerns that arise at home. 22:57 ED course: Patient given wound infection return precautions. Patient distributors plan [facility] of care.. Administered Medications: No medications were administered Disposition Summary: 11/26/21 22:58 Discharge Ordered Location: Home [facility] Condition: Stable [facility] Diagnosis - Cutaneous abscess of the left thigh [facility] Followup: [facility] - With: Private Physician - When: 2 - 3 days - Reason: Recheck today's complaints, Continuance of care, Re-evaluation by your physician Discharge Instructions: - Discharge Summary Sheet [facility] - Incision and Drainage, Care After [facility] Forms: - Medication Reconciliation Form [facility] - Thank You Letter [facility] - Antibiotic Education [facility] - Prescription Opioid Use [facility] Prescriptions: - Doxycycline Hyclate 100 mg Oral Tablet - take 1 tablet by ORAL route every 12 hours; 20 tablet; Refills: 0, Product [facility] Selection Permitted Signatures: Antony Grande PA PA jmm Hicks, Barbara RN RN [facility]
--- NOTE | 2021-11-26 22:58 | ER ---
Nurse's Notes [facility] Name: Shobha Rodriguez Age: 26 yrs Sex: Female : 1995 Arrival Date: 11/26/2021 Time: 21:59 Bed 15 Private MD: Diagnosis: Cutaneous abscess of the left thigh Presentation: 11/26 22:13 Chief complaint: Patient states: boil to back of her upper left thigh for the last two 1 days. Coronavirus screen: Vaccine status: Patient reports being unvaccinated. Client denies travel out of the [place] in the last 14 days. At this time, the client does not indicate any symptoms associated with coronavirus-19. Ebola Screen: Patient negative for fever greater than or equal to 101.5 degrees Fahrenheit, and additional compatible Ebola Virus Disease symptoms. Initial Sepsis Screen: Does the patient meet any 2 criteria? No. Patient's initial sepsis screen is negative. Does the patient have a suspected source of infection? No. Patient's initial sepsis screen is negative. Risk Assessment: Do you want to hurt yourself or someone else? Patient reports no desire to harm self or others. Onset of symptoms was November 24, 2021. 22:13 Method Of Arrival: Ambulatory [facility] 22:13 Acuity: THAIS 4 [facility] Triage Assessment: 22:14 General: Appears in no apparent distress. uncomfortable, Behavior is calm, cooperative, [facility] appropriate for age. Pain: Denies pain. [employer]: 22:14 LMP 11/26/2021 [facility] Historical: - Allergies: 22:14 PENICILLINS; 1 - PMHx: 22:14 Migraines; psoriasis; [facility] - Immunization history:: Adult Immunizations up to date. - Social history:: Smoking status: Patient denies any tobacco usage or history of. Screenin:22 Abuse screen: Denies threats or abuse. Denies injuries from another. Nutritional kd3 screening: No deficits noted. Tuberculosis screening: No symptoms or risk factors identified. Fall Risk None identified. Assessment: 22:21 General: Appears in no apparent distress. Behavior is calm, cooperative. Neuro: Level kd3 of Consciousness is awake, alert, obeys commands, Oriented to person, place, time, situation. Respiratory: Airway is patent Trachea midline Respiratory effort is even, unlabored. Derm:. Vital Signs: 22:13 BP 118 / 81; Pulse 105; Resp 18; Temp 98.1(TE); Pulse Ox 100% ; Weight 74.84 kg; Height [facility] 4 ft. 11 in. (149.86 cm); Pain 8/10; 22:22 BP 110 / 77; Pulse 106; Resp 18; Temp 98.6(O); Pulse Ox 99% on R/A; kd3 22:13 Body Mass Index 33.33 (74.84 kg, 149.86 cm) [facility] ED Course: 21:59 Patient arrived in ED. ja2 22:06 Antony Grande PA is PHCP. [facility] 22:06 Ember Brown MD is Attending Physician. [facility] 22:14 Triage completed. 1 22:14 Arm band placed on right wrist. 1 22:22 Patient has correct armband on for positive identification. kd3 22:22 No provider procedures requiring assistance completed. kd3 23:10 Katlyn Haque, RN is Primary Nurse. ll3 23:10 Patient did not have IV access during this emergency room visit. ll3 Administered Medications: No medications were administered Medication: 22:23 VIS not applicable for this client. kd3 Outcome: 22:58 Discharge ordered by . [facility] 23:10 Discharged to home ambulatory. 3 23:10 Condition: stable 23:10 Discharge instructions given to patient, Instructed on discharge instructions, follow up and referral plans. medication usage, Demonstrated understanding of instructions, follow-up care, medications, Prescriptions given X 1. 23:10 Patient left the ED. ll3 Signatures: Antony Grande PA PA Whit Lua [facility] Katlyn Haque, AUTUMN RN 3 Becca Alanis RN RN kd3 Yovana Krishnan, RN RN [facility]
[2021-11-27 01:51] VITALS: BP 110/77; TEMP 98.6; O2SAT 99
== END 2021-11-26 23:10 | disposition home or self-care (01) ==
LOC: ER 21:56
PROC: 0H9JXZZ Drainage of Left Upper Leg Skin, External Approach (ICD-10-PCS; principal; 2021-11-26)
DX: L02.416 Cutaneous abscess of left lower limb (principal); Z88.0 Allergy status to penicillin
CPT/HCPCS: 99282